=== PATIENT | male | born 1975 | race Caucasian/White ===

== ENCOUNTER → 2017-11-14 | Outpatient (REF) | payer BC ==
[2017-11-14 17:55] LABS: ALBUMIN 3.5 GM/DL (3.2-5.2); ALKALINE PHOSPHATASE 74 U/L (45-117); ALT/SGPT 19 U/L (12-78); ANION GAP 5 MEQ/L (8-16); AST/SGOT 17 U/L (7-37); BILIRUBIN,TOTAL 0.3 MG/DL (0.2-1.0); BLOOD UREA NITROGEN 14 MG/DL (7-18); CALCIUM LEVEL 8.2 MG/DL (8.5-10.1); CARBON DIOXIDE LEVEL 27 MEQ/L (21-32); CHLORIDE LEVEL 108 MEQ/L (98-107); CHOLESTEROL LEVEL 147 MG/DL (<200); CHOLESTEROL RISK RATIO 3.127 (<5); CREATININE FOR GFR 0.77 MG/DL (0.70-1.30); GLOMERULAR FILTRATION RATE > 60.0 (>60); GLUCOSE, FASTING 89 MG/DL (70-100); HDL CHOLESTEROL 47 MG/DL (>40); LDL CHOLESTEROL 86.8 MG/DL (<100); NON-HDL-C 100 MG/DL; POTASSIUM SERUM 4.3 MEQ/L (3.5-5.1); SODIUM LEVEL 140 MEQ/L (136-145); TOTAL PROTEIN 7.4 GM/DL (6.4-8.2); TRIGLYCERIDES LEVEL 66 MG/DL (<150)
[2017-11-14 20:29] LABS: APPEARANCE, URINE CLEAR (CLEAR); BACTERIA, URINE AUTO NEGATIVE (NEGATIVE); BILIRUBIN, URINE AUTO NEGATIVE (NEGATIVE); BLOOD, URINE BLOOD NEGATIVE (NEGATIVE); CALCIUM OXALATE CRYSTALS SMALL; COLOR, URINE YELLOW (YELLOW); GLUCOSE, URINE (UA) AUTO NEGATIVE (NEGATIVE); KETONE, URINE AUTO NEGATIVE (NEGATIVE); LEUKOCYTE ESTERASE, URINE AUTO NEGATIVE (NEGATIVE); MUCUS, URINE SMALL (NEGATIVE); NITRITE, URINE AUTO NEGATIVE (NEGATIVE); PROTEIN, URINE AUTO NEGATIVE (NEGATIVE); RBC, URINE AUTO 0 /HPF (0-3); SPECIFIC GRAVITY URINE AUTO 1.029 (1.002-1.035); SQUAMOUS EPITHELIAL CELL UR AU 0 /HPF (0-6); WBC, URINE AUTO 1 /HPF (0-3)
[2017-11-14 23:34] LABS: CHLAMYDIA DNA AMPLIFICATION NEGATIVE (NEGATIVE); GC DNA AMPLIFICATION NEGATIVE (NEGATIVE)
[2017-11-15 10:10] LABS: HEPATITIS B SURFACE ANTIGEN NEGATIVE (NEGATIVE)
[2017-11-19 00:07] LABS: CHLAMYDIA PHARYNGEAL APTIMA Negative (Negative); GC PHARYNGEAL APTIMA Negative (Negative)
[2017-11-20 00:06] LABS: %CD4 Pos Lymphs 3.7 % (30.8-58.5); ABS Lymphs 0.4 x10E3/uL (0.7-3.1); ABS Monocytes 0.3 x10E3/uL (0.1-0.9); ABS Neutophils 2.4 x10E3/uL (1.4-7.0); Abs CD4 Helper 15 /uL (359-1519); Abs CD8 Suppres 248 /uL (109-897); CD4/CD8 Ratio 0.06 (0.92-3.72); CHLAMYDIA RECTAL APTIMA Negative (Negative); CRYPTOCOCCUS ANTIGEN SER Negative (Negative); Eosinophils 1 % (Not Estab.); GC RECTAL APTIMA Negative (Negative); HCT 35.5 % (37.5-51.0); HEPATITIS B CORE ANTIBODY IGG Negative (Negative); HGB 11.3 g/dL (13.0-17.7); HIV-1 RNA PCR QUANT 2 LC550285 940490 copies/mL (.); HIV-1 RNA PCR QUANT 3 LC550285 5.973 (.); Immature Grans 0 % (Not Estab.); Lymphocytes 13 % (Not Estab.); MCH 28.8 pg (26.6-33.0); MCHC 31.8 g/dL (31.5-35.7); MCV 91 fL (79-97); Monocytes 9 % (Not Estab.); Neutrophils 77 % (Not Estab.); Platelets 131 x10E3/uL (150-379); QUANTIFERON GOLD TB Negative (Negative); RBC 3.92 x10E6/uL (4.14-5.80); RDW 13.9 % (12.3-15.4); TB Test (QFT) Antigen 0.13 IU/mL (.); TB Test (QFT) Antigen Minus Ni <0.01 IU/mL (.); TB Test (QFT) Mitogen 6.82 IU/mL (.); TB Test (QFT) Nil 0.14 IU/mL (.)
== END ==
LOC: M SFHCPLAZ 13:28
DX: B20 Human immunodeficiency virus [HIV] disease (principal); Z13.220 Encounter for screening for lipoid disorders; B45.0 Pulmonary cryptococcosis; A60.02 Herpesviral infection of other male genital organs

== ENCOUNTER → 2018-01-14 | Outpatient (REF) | payer BC | LOC: M SFHCPLAZ 10:29 | DX: A09 Infectious gastroenteritis and colitis, unspecified (principal) | CPT/HCPCS: 87507 ==

== ENCOUNTER → 2018-01-17 | Outpatient (CLI) | payer BC ==
[2018-01-17 11:47] LABS: ALBUMIN 2.9 GM/DL (3.2-5.2); ALBUMIN/GLOBULIN RATIO 0.69 (1.00-1.93); ALKALINE PHOSPHATASE 68 U/L (45-117); ALT/SGPT 15 U/L (12-78); ANION GAP 5 MEQ/L (8-16); AST/SGOT 15 U/L (7-37); BILIRUBIN,TOTAL 0.2 MG/DL (0.2-1.0); BLOOD UREA NITROGEN 16 MG/DL (7-18); CALCIUM LEVEL 8.5 MG/DL (8.5-10.1); CARBON DIOXIDE LEVEL 25 MEQ/L (21-32); CHLORIDE LEVEL 113 MEQ/L (98-107); CREATININE FOR GFR 0.78 MG/DL (0.70-1.30); GLOMERULAR FILTRATION RATE > 60.0 (>60); GLUCOSE, FASTING 88 MG/DL (70-100); POTASSIUM SERUM 3.9 MEQ/L (3.5-5.1); SODIUM LEVEL 143 MEQ/L (136-145); TOTAL PROTEIN 7.1 GM/DL (6.4-8.2)
[2018-01-19 00:07] LABS: % CD8 Pos Lymph 56.8 % (12.0-35.5); %CD4 Pos Lymphs 16.4 % (30.8-58.5); ABS Basophils 0.1 x10E3/uL (0.0-0.2); ABS Eosinophils 0.1 x10E3/uL (0.0-0.4); ABS Lymphs 1.1 x10E3/uL (0.7-3.1); ABS Monocytes 0.5 x10E3/uL (0.1-0.9); ABS Neutophils 2.4 x10E3/uL (1.4-7.0); Abs CD4 Helper 180 /uL (359-1519); Abs CD8 Suppres 625 /uL (109-897); CD4/CD8 Ratio 0.29 (0.92-3.72); Eosinophils 3 % (Not Estab.); HGB 11.1 g/dL (13.0-17.7); Immature Grans 0 % (Not Estab.); Lymphocytes 25 % (Not Estab.); MCH 29.5 pg (26.6-33.0); MCHC 33.6 g/dL (31.5-35.7); MCV 88 fL (79-97); Monocytes 11 % (Not Estab.); Neutrophils 60 % (Not Estab.); Platelets 268 x10E3/uL (150-379); RBC 3.76 x10E6/uL (4.14-5.80); RDW 15.5 % (12.3-15.4); WBC 4.1 x10E3/uL (3.4-10.8)
[2018-01-20 14:11] LABS: CRYPTOCOCCUS ANTIGEN SER Negative (Negative); HSV TYPE II IgG SPECIFIC <0.91 index (0.00-0.90)
[2018-01-21 14:18] LABS: HIV-1 RNA PCR QUANT 2 LC550285 880 copies/mL (.); HIV-1 RNA PCR QUANT 3 LC550285 2.944 (.)
== END ==
LOC: M LAB 10:38
DX: B45.0 Pulmonary cryptococcosis (principal); B20 Human immunodeficiency virus [HIV] disease
CPT/HCPCS: 71250

== ENCOUNTER 2018-01-20 13:36 | Inpatient (IN) | payer BC ==
[~2018-01-20 13:36] MED LIST: ONDANSETRON 4 MG TAB (S0181) PO
[2018-01-20 14:10] LABS: HEMATOCRIT 35.3 % (42.0-52.0); HEMOGLOBIN 11.5 g/dl (13.5-17.5); MEAN CORPUSCULAR HEMOGLOBIN 28.9 pg (27.0-33.0); MEAN CORPUSCULAR HGB CONC 32.6 g/dl (32.0-36.5); MEAN CORPUSCULAR VOLUME 88.7 fl (80.0-96.0); PLATELET COUNT, AUTOMATED 254 10^3/uL (150-450); RED BLOOD COUNT 3.98 10^6/uL (4.30-6.10); RED CELL DISTRIBUTION WIDTH 15.4 % (11.5-14.5); WHITE BLOOD COUNT 4.4 10^3/uL (4.0-10.0)
[2018-01-20 14:15] LABS: ADD MANUAL DIFFER YES; DIFF SLIDE NUMBER 240; POSITIVE MORPH POS FLAG
[2018-01-20] MEDS ORDERED: LEVALBUTEROL 1.25 MG/0.5 ML CONCENTRATE NEB NEB (14:30)
[2018-01-20] MEDS ORDERED: BISACODYL 10 MG SUPP PR (14:30)
[2018-01-20] MEDS: ACETAMINOPHEN TAB 650MG DOSE (2X325MG) PO ×2 (14:43→21:47)
[2018-01-20 14:46] LABS: ANION GAP 5 MEQ/L (8-16); BLOOD UREA NITROGEN 13 MG/DL (7-18); CALCIUM LEVEL 8.5 MG/DL (8.5-10.1); CARBON DIOXIDE LEVEL 23 MEQ/L (21-32); CHLORIDE LEVEL 116 MEQ/L (98-107); CREATININE FOR GFR 0.84 MG/DL (0.70-1.30); GLOMERULAR FILTRATION RATE > 60.0 (>60); GLUCOSE, FASTING 76 MG/DL (70-100); POTASSIUM SERUM 3.9 MEQ/L (3.5-5.1); SODIUM LEVEL 144 MEQ/L (136-145)
[2018-01-20 15:01] LABS: ATYPICAL LYMPH 9 % (0-5); BANDS 1 % (< 11); BASOPHILS 1 % (0-4); EOSINOPHILS 4 % (0-5); LYMPHOCYTES 27 % (16-52); MONOCYTES 3 % (0-8); NEUTROPHILS 55 % (35-75)
[2018-01-20 15:02] LABS: ANISOCYTOSIS 1+
[2018-01-20 15:03] LABS: LDH LACTATE DEHYDROGENASE 197 U/L (87-241)
[2018-01-20 15:03] LABS: PLATELET ESTIMATE NORMAL (NORMAL); POIKILOCYTOSIS 1+
[2018-01-20 15:04] LABS: TEAR DROP CELLS 1+
[2018-01-20] MEDS: LEVALBUTEROL 1.25 MG/0.5 ML CONCENTRATE NEB NEB ×2 (15:24→20:00)
[2018-01-20] MEDS: KETOROLAC 30 MG/ML VIAL (J1885) IV ×2 (16:50→21:46)
[2018-01-20] MEDS ORDERED: SLF 3 ML SYR IV (18:15)
[2018-01-20] MEDS: HEPARIN SOD (PORCINE) 5000 UNITS/ML VIAL SC (21:00)
[2018-01-20] MEDS: DOCUSATE SODIUM 100 MG CAP PO (21:00)
[2018-01-20] MEDS: SLF 3 ML SYR IV (21:46)
[2018-01-21] MEDS: LEVALBUTEROL 1.25 MG/0.5 ML CONCENTRATE NEB NEB ×4 (02:00→20:00)
[2018-01-21] MEDS: KETOROLAC 30 MG/ML VIAL (J1885) IV ×4 (03:57→21:10)
[2018-01-21] MEDS: SLF 3 ML SYR IV ×3 (06:00→21:10)
[2018-01-21] MEDS: BACTRIM 160MG/800MG DS TAB PO (08:54)
[2018-01-21] MEDS: PERCOCET 5MG/325MG TAB PO ×3 (08:54→20:00)
[2018-01-21] MEDS: valACYclovir HCL 500 MG TAB PO (08:54)
[2018-01-21] MEDS: PREZISTA 800 MG PO (08:55)
[2018-01-21] MEDS: GENVOYA PO (08:55)
[2018-01-21] MEDS: HEPARIN SOD (PORCINE) 5000 UNITS/ML VIAL SC ×2 (09:00→20:00)
[2018-01-21] MEDS ORDERED: NON-FORMULARY COMPOUNDED MEDICATION PO (09:00)
[2018-01-21] MEDS: MOM 30ML SUSPENSION UDC PO (09:00)
[2018-01-21 15:40] LABS: PH BODY FLUID 7.451 UNITS (NOT ESTABLISHED); SOURCE, BODY FLUID pH PLEURAL
[2018-01-21 16:06] LABS: BF MONONUCLEAR CELL % 73.4 % (0-0); BF POLYMORPHONUCLEAR CELL % 26.6 % (0-0); RBC BODY FLUID 155 10^3/uL (<2); WBC BODY FLUID 1484 /uL (0-10)
[2018-01-21 16:08] LABS: AMYLASE, BODY FLUID 22 U/L (NOT ESTABLISHED); CHOLESTEROL, BODY FLUID 101 MG/DL (NOT ESTABLISHED); LDH, BODY FLUID 390 U/L (NOT ESTABLISHED); SOURCE, BODY FLUID ALBUMIN PLEURAL; SOURCE, BODY FLUID AMYLASE PLEURAL; SOURCE, BODY FLUID CHOL PLEURAL; SOURCE, BODY FLUID GLUCOSE PLEURAL; SOURCE, BODY FLUID LDH PLEURAL; SOURCE, BODY FLUID TOT PROTEIN PLEURAL; SOURCE, BODY FLUID TRIG PLEURAL; TOTAL PROTEIN, BODY FLUID 4.7 G/DL (NOT ESTABLISHED); TRIGLYCERIDE, BODY FLUID 49 MG/DL (NOT ESTABLISHED)
[2018-01-21 16:12] LABS: SOURCE, BODY FLUID PLEURAL
[2018-01-21 16:13] LABS: APPEARANCE, BODY FLUID CLOUDY (CLEAR); BF DIFF IF INDICATED? YES (NO); PLEURAL FL COLOR RED (COLORLESS)
[2018-01-21] MEDS: MOXIFLOXACIN 400 MG TAB PO (21:45)
[2018-01-22] MEDS: PERCOCET 5MG/325MG TAB PO ×6 (00:13→21:38)
[2018-01-22] MEDS: LEVALBUTEROL 1.25 MG/0.5 ML CONCENTRATE NEB NEB ×4 (02:00→20:00)
[2018-01-22] MEDS: KETOROLAC 30 MG/ML VIAL (J1885) IV ×4 (04:00→21:38)
[2018-01-22] MEDS: SLF 3 ML SYR IV ×3 (05:08→21:01)
[2018-01-22] MEDS: valACYclovir HCL 500 MG TAB PO (08:46)
[2018-01-22] MEDS: BACTRIM 160MG/800MG DS TAB PO (08:46)
[2018-01-22] MEDS: HEPARIN SOD (PORCINE) 5000 UNITS/ML VIAL SC ×2 (08:47→21:01)
[2018-01-22] MEDS: GENVOYA PO (08:47)
[2018-01-22] MEDS: PREZISTA 800 MG PO (08:48)
[2018-01-22] MEDS: MOM 30ML SUSPENSION UDC PO (08:48)
[2018-01-22] MEDS: LOMOTIL 2.5MG/0.025MG TABLET PO ×3 (09:00→21:01)
[2018-01-22] MEDS: ALTEPLASE 2 MG/2 ML VIAL (J2997 PER 1MG) XX (13:35)
[2018-01-22] MEDS: MOXIFLOXACIN 400 MG TAB PO (17:30)
[2018-01-23] MEDS: PERCOCET 5MG/325MG TAB PO ×2 (01:39→05:50)
[2018-01-23] MEDS: LEVALBUTEROL 1.25 MG/0.5 ML CONCENTRATE NEB NEB ×2 (02:00→20:00)
[2018-01-23] MEDS: ACETAMINOPHEN TAB 650MG DOSE (2X325MG) PO ×2 (03:27→09:09)
[2018-01-23] MEDS: KETOROLAC 30 MG/ML VIAL (J1885) IV ×4 (03:27→21:31)
[2018-01-23] MEDS: SLF 3 ML SYR IV ×3 (03:29→21:30)
[2018-01-23] MEDS: MOM 30ML SUSPENSION UDC PO (08:48)
[2018-01-23] MEDS: BACTRIM 160MG/800MG DS TAB PO (08:48)
[2018-01-23] MEDS: valACYclovir HCL 500 MG TAB PO (08:48)
[2018-01-23] MEDS: LOMOTIL 2.5MG/0.025MG TABLET PO ×2 (08:48→16:01)
[2018-01-23] MEDS: HEPARIN SOD (PORCINE) 5000 UNITS/ML VIAL SC ×2 (08:48→21:30)
[2018-01-23] MEDS: PREZISTA 800 MG PO (08:49)
[2018-01-23] MEDS: GENVOYA PO (08:49)
[2018-01-23] MEDS: MOXIFLOXACIN 400 MG TAB PO (18:08)
[2018-01-23] MEDS ORDERED: LOMOTIL 2.5MG/0.025MG TABLET PO (20:00)
[2018-01-24 00:06] LABS: BODY FLUID CULTURE Not Indicated (.); LEGIONELLA ANTIGEN URINE Negative (Negative); ORGANISM ID Not indicated. (.); SPECIMEN SOURCE Urine (.); URINE STREP PNEUMONIAE ANTIGEN Negative (Negative)
[2018-01-24] MEDS: LEVALBUTEROL 1.25 MG/0.5 ML CONCENTRATE NEB NEB ×2 (02:00→08:00)
[2018-01-24] MEDS: KETOROLAC 30 MG/ML VIAL (J1885) IV ×2 (03:07→08:59)
[2018-01-24] MEDS: SLF 3 ML SYR IV (06:00)
[2018-01-24] MEDS: PERCOCET 5MG/325MG TAB PO (07:16)
[2018-01-24] MEDS: MOM 30ML SUSPENSION UDC PO (07:57)
[2018-01-24] MEDS: valACYclovir HCL 500 MG TAB PO (07:57)
[2018-01-24] MEDS: HEPARIN SOD (PORCINE) 5000 UNITS/ML VIAL SC (07:57)
[2018-01-24] MEDS: GENVOYA PO (07:58)
[2018-01-24] MEDS: PREZISTA 800 MG PO (07:59)
[2018-01-24] MEDS: BACTRIM 160MG/800MG DS TAB PO (08:36)
[2018-01-26 00:06] LABS: O+P EXAM Final report (.)
== END 2018-01-24 12:28 | disposition home or self-care (01) | DRG 894 ==
LOC: M MSPAV 13:36 → M PCU 17:28
PROVIDERS: Internal Medicine Infectious Disease
PROC: 0W9930Z Drainage of Right Pleural Cavity with Drainage Device, Percutaneous Approach (ICD-10-PCS; principal; 2018-01-21)
PROC: 3E0L3GC Introduction of Other Therapeutic Substance into Pleural Cavity, Percutaneous Approach (ICD-10-PCS; 2018-01-22)
DX: J90 Pleural effusion, not elsewhere classified (principal); B20 Human immunodeficiency virus [HIV] disease; F32.9 Major depressive disorder, single episode, unspecified; F41.9 Anxiety disorder, unspecified; E78.1 Pure hyperglyceridemia; Z88.0 Allergy status to penicillin; Z79.899 Other long term (current) drug therapy

== ENCOUNTER → 2018-03-12 | Outpatient (CLI) | payer BC | LOC: M RAD 12:03 | DX: B45.0 Pulmonary cryptococcosis (principal) ==

== ENCOUNTER → 2018-06-30 | Outpatient (REF) | payer BC ==
[2018-06-30 23:28] LABS: ALBUMIN 3.8 GM/DL (3.2-5.2); ALKALINE PHOSPHATASE 99 U/L (45-117); ALT/SGPT 30 U/L (12-78); ANION GAP 7 MEQ/L (8-16); AST/SGOT 27 U/L (7-37); BILIRUBIN,TOTAL 0.4 MG/DL (0.2-1.0); BLOOD UREA NITROGEN 12 MG/DL (7-18); CALCIUM LEVEL 8.6 MG/DL (8.5-10.1); CARBON DIOXIDE LEVEL 25 MEQ/L (21-32); CHLORIDE LEVEL 110 MEQ/L (98-107); CREATININE FOR GFR 0.84 MG/DL (0.70-1.30); GLOMERULAR FILTRATION RATE > 60.0 (>60); GLUCOSE, FASTING 76 MG/DL (70-100); POTASSIUM SERUM 4.8 MEQ/L (3.5-5.1); SODIUM LEVEL 142 MEQ/L (136-145); TOTAL PROTEIN 7.5 GM/DL (6.4-8.2)
[2018-06-30 23:37] LABS: ALBUMIN/GLOBULIN RATIO 1.03 (1.00-1.93)
[2018-07-02 14:18] LABS: % CD8 Pos Lymph 58.5 % (12.0-35.5); %CD4 Pos Lymphs 5.8 % (30.8-58.5); ABS Monocytes 0.4 x10E3/uL (0.1-0.9); ABS Neutophils 1.5 x10E3/uL (1.4-7.0); Abs CD4 Helper 58 /uL (359-1519); Abs CD8 Suppres 585 /uL (109-897); Eosinophils 1 % (Not Estab.); HCT 43.3 % (37.5-51.0); HGB 14.2 g/dL (13.0-17.7); HIV-1 RNA PCR QUANT 2 LC550285 434670 copies/mL (.); HIV-1 RNA PCR QUANT 3 LC550285 5.638 (.); Immature Grans 0 % (Not Estab.); Lymphocytes 32 % (Not Estab.); MCH 29.5 pg (26.6-33.0); MCHC 32.8 g/dL (31.5-35.7); MCV 90 fL (79-97); Monocytes 14 % (Not Estab.); Neutrophils 53 % (Not Estab.); Platelets 128 x10E3/uL (150-379); RBC 4.81 x10E6/uL (4.14-5.80); RDW 14.4 % (12.3-15.4)
[2018-07-11 09:18] LABS: HIV GenoSure PRIme(R) SEE SEPARATE REPORT
== END ==
LOC: M SFHCPLAZ 11:49
DX: B20 Human immunodeficiency virus [HIV] disease (principal)
CPT/HCPCS: 80053

== ENCOUNTER → 2018-11-03 | Outpatient (REF) | payer BC ==
[~2018-11-03] MED LIST changes: +AVEL1TAB3 PO; +AZIT600T PO; +BACT800T5 PO; +DIPH2.5T14 PO; +GENV1TAB PO; +LOMO2.5T PO; +MOXI1TAB PO; -ONDANSETRON 4 MG TAB (S0181) PO; +PREZ800T2 PO; +PROB1TAB PO; +VALA1TAB2 PO
[2018-11-05 14:58] LABS: %CD4 Pos Lymphs 16.1 % (30.8-58.5); ABS Eosinophils 0.1 x10E3/uL (0.0-0.4); ABS Monocytes 0.6 x10E3/uL (0.1-0.9); ABS Neutophils 4.8 x10E3/uL (1.4-7.0); Abs CD4 Helper 322 /uL (359-1519); Abs CD8 Suppres 1040 /uL (109-897); CD4/CD8 Ratio 0.31 (0.92-3.72); Eosinophils 1 % (Not Estab.); HCT 42.7 % (37.5-51.0); HGB 13.9 g/dL (13.0-17.7); Immature Grans 0 % (Not Estab.); Lymphocytes 27 % (Not Estab.); MCHC 32.6 g/dL (31.5-35.7); MCV 95 fL (79-97); Monocytes 8 % (Not Estab.); Neutrophils 64 % (Not Estab.); Platelets 279 x10E3/uL (150-379); RBC 4.48 x10E6/uL (4.14-5.80); RDW 13.6 % (12.3-15.4); WBC 7.4 x10E3/uL (3.4-10.8)
[2018-11-07 00:10] LABS: HIV-1 RNA PCR QUANT 2 LC550285 140 copies/mL (.); HIV-1 RNA PCR QUANT 3 LC550285 2.146 (.)
== END ==
LOC: M SFHCPLAZ 14:55
PROVIDERS: ATTEND Internal Medicine Infectious Disease
DX: B20 Human immunodeficiency virus [HIV] disease (principal)

== ENCOUNTER → 2018-12-29 | Outpatient (REF) | payer BC ==
[2018-12-29 10:23] LABS: APPEARANCE, URINE HAZY (CLEAR); BACTERIA, URINE AUTO NEGATIVE (NEGATIVE); BILIRUBIN, URINE AUTO NEGATIVE (NEGATIVE); BLOOD, URINE BLOOD NEGATIVE (NEGATIVE); COLOR, URINE AMBER (YELLOW); GLUCOSE, URINE (UA) AUTO NEGATIVE (NEGATIVE); KETONE, URINE AUTO NEGATIVE (NEGATIVE); LEUKOCYTE ESTERASE, URINE AUTO NEGATIVE (NEGATIVE); MUCUS, URINE SMALL (NEGATIVE); NITRITE, URINE AUTO NEGATIVE (NEGATIVE); PROTEIN, URINE AUTO NEGATIVE (NEGATIVE); RBC, URINE AUTO 1 /HPF (0-3); SPECIFIC GRAVITY URINE AUTO 1.028 (1.002-1.035); SQUAMOUS EPITHELIAL CELL UR AU 0 /HPF (0-6); WBC, URINE AUTO 1 /HPF (0-3)
[2018-12-29 10:46] LABS: ALBUMIN 4.1 GM/DL (3.2-5.2); ALT/SGPT 41 U/L (12-78); BILIRUBIN,TOTAL 0.3 MG/DL (0.2-1.0); BLOOD UREA NITROGEN 31 MG/DL (7-18); CALCIUM LEVEL 8.8 MG/DL (8.5-10.1); CARBON DIOXIDE LEVEL 25 MEQ/L (21-32); CHLORIDE LEVEL 108 MEQ/L (98-107); CHOLESTEROL LEVEL 153 MG/DL (<200); CREATININE FOR GFR 1.11 MG/DL (0.70-1.30); GLOMERULAR FILTRATION RATE > 60.0 (>60); GLUCOSE, FASTING 59 MG/DL (70-100); HDL CHOLESTEROL 51 MG/DL (>40); LDL CHOLESTEROL 88 MG/DL (<100); NON-HDL-C 102 MG/DL; POTASSIUM SERUM 4.6 MEQ/L (3.5-5.1); SODIUM LEVEL 141 MEQ/L (136-145); TOTAL PROTEIN 7.3 GM/DL (6.4-8.2); TRIGLYCERIDES LEVEL 72 MG/DL (<150)
[2018-12-29 11:49] LABS: CHLAMYDIA DNA AMPLIFICATION NEGATIVE (NEGATIVE); GC DNA AMPLIFICATION NEGATIVE (NEGATIVE)
[2018-12-31 00:07] LABS: % CD8 Pos Lymph 51.4 % (12.0-35.5); %CD4 Pos Lymphs 13.3 % (30.8-58.5); ABS Eosinophils 0.1 x10E3/uL (0.0-0.4); ABS Lymphs 1.6 x10E3/uL (0.7-3.1); ABS Monocytes 0.5 x10E3/uL (0.1-0.9); ABS Neutophils 4.4 x10E3/uL (1.4-7.0); Abs CD4 Helper 213 /uL (359-1519); Abs CD8 Suppres 822 /uL (109-897); CD4/CD8 Ratio 0.26 (0.92-3.72); Eosinophils 1 % (Not Estab.); HCT 42.7 % (37.5-51.0); HGB 14.2 g/dL (13.0-17.7); Immature Grans 0 % (Not Estab.); Lymphocytes 24 % (Not Estab.); MCH 30.5 pg (26.6-33.0); MCHC 33.3 g/dL (31.5-35.7); MCV 92 fL (79-97); Monocytes 7 % (Not Estab.); Neutrophils 68 % (Not Estab.); Platelets 205 x10E3/uL (150-379); RBC 4.66 x10E6/uL (4.14-5.80); RDW 13.8 % (12.3-15.4); WBC 6.5 x10E3/uL (3.4-10.8)
[2019-01-01 00:06] LABS: HIV-1 RNA PCR QUANT 2 LC550285 55560 copies/mL (.); HIV-1 RNA PCR QUANT 3 LC550285 4.745 (.)
== END ==
LOC: M SFHCPLAZ 08:00
PROVIDERS: ATTEND Internal Medicine Infectious Disease
DX: Z13.220 Encounter for screening for lipoid disorders (principal); B20 Human immunodeficiency virus [HIV] disease

== ENCOUNTER 2020-10-27 12:13 | Emergency (ER) | payer BC, OTHER ==
[~2020-10-27] VITALS: Ht 170.2 cm; Wt 74.5 kg
[~2020-10-27 12:13] MED LIST changes: -AZIT600T PO; -VALA1TAB2 PO; +VALA1TAB5 PO; +[UNRECOGNIZED DRUG - CODE] PO
[2020-10-27] MEDS ORDERED: IBUP200T45 PO (13:15)
[2020-10-27] MEDS ORDERED: NS 1,000 ML IV ONE (13:45)
[2020-10-27] MEDS ORDERED: ACETAMINOPHEN 500 MG TAB PO ONE (13:45)
[2020-10-27 14:56] LABS: ALBUMIN 3.1 GM/DL (3.2-5.2); ALT/SGPT 24 U/L (12-78); BILIRUBIN,DIRECT < 0.1 MG/DL (0.0-0.2); BILIRUBIN,TOTAL 0.2 MG/DL (0.2-1.0); BLOOD UREA NITROGEN 22 MG/DL (7-18); C REACTIVE PROTEIN QUANTITATIV 1.82 MG/DL (0.00-0.30); CALCIUM LEVEL 8.2 MG/DL (8.5-10.1); CARBON DIOXIDE LEVEL 27 MEQ/L (21-32); CHLORIDE LEVEL 108 MEQ/L (98-107); CREATININE FOR GFR 0.77 MG/DL (0.70-1.30); GLOMERULAR FILTRATION RATE > 60.0 (>60); GLUCOSE, FASTING 99 MG/DL (70-100); LIPASE 113 U/L (73-393); POTASSIUM SERUM 4.1 MEQ/L (3.5-5.1); SODIUM LEVEL 139 MEQ/L (136-145); TOTAL PROTEIN 6.6 GM/DL (6.4-8.2)
[2020-10-27 14:57] LABS: ERYTHROCYTE SEDIMENTATION RATE 40 mm/hr (0-15)
[2020-10-27 14:59] LABS: BASO % 0.5 % (0.0-1.0); EOS # 0.1 10^3/uL (0.0-0.5); EOS % 1.8 % (0.0-3.0); HEMATOCRIT 32.8 % (42.0-52.0); HEMOGLOBIN 10.8 g/dl (13.5-17.5); LYMPH # 0.6 10^3/uL (1.5-5.0); LYMPH % 15.4 % (24.0-44.0); MEAN CORPUSCULAR HEMOGLOBIN 28.1 pg (27.0-33.0); MEAN CORPUSCULAR HGB CONC 32.9 g/dl (32.0-36.5); MEAN CORPUSCULAR VOLUME 85.2 fl (80.0-96.0); MONO # 0.4 10^3/uL (0.0-0.8); MONO % 9.7 % (0.0-5.0); NEUTROPHILS # 2.8 10^3/uL (1.5-8.5); NEUTROPHILS % 71.8 % (36.0-66.0); PLATELET COUNT, AUTOMATED 170 10^3/uL (150-450); RED BLOOD COUNT 3.85 10^6/uL (4.30-6.10); WHITE BLOOD COUNT 3.8 10^3/uL (4.0-10.0)
--- NOTE | 2020-10-27 15:34 | REP ---
INDICATION: pain swelling to r index finger COMPARISON: None. TECHNIQUE: AP, lateral, bilateral oblique views right hand. FINDINGS: The osseous structures and joint spaces are intact and normal. There is no evidence for acute fracture or dislocation. Surrounding soft tissues are unremarkable. No subcutaneous emphysema or radiodense foreign body. IMPRESSION: Normal right hand series. No acute fracture or dislocation. <Electronically signed by Khoa Yates > 10/27/20 7147
--- NOTE | 2020-10-27 16:27 | REP ---
INDICATION: delayed cap refill, purple discoloration to index finger R COMPARISON: 10/12/2019 TECHNIQUE: Real time coates scale and color Doppler ultrasound examination of the right upper extremity using linear high-frequency transducer FINDINGS: Doppler interrogation demonstrates primarily normal triphasic arterial wave patterns and velocities of the subclavian artery, axillary artery, brachial artery, radial artery and proximal ulnar artery. The mid to distal ulnar artery demonstrates monophasic wave patterns with normal velocity. There is no evidence for occlusion or stenosis. Right subclavian artery: 165 cm/sec triphasic Proximal axillary artery: 90 cm/sec triphasic Distal axillary artery: 103 cm/sec triphasic Proximal brachial artery: 111 cm/sec triphasic Distal brachial artery: 117 cm/sec triphasic Proximal ulnar artery: 110 cm/sec triphasic Mid ulnar artery: 125 cm/sec monophasic Distal ulnar artery: 129 cm/sec monophasic Proximal radial artery: 106 cm/sec triphasic Distal radial artery: 107 cm/sec triphasic IMPRESSION: Normal velocities and no evidence for stenosis or occlusion to the above-mentioned right upper extremity arteries. <Electronically signed by Khoa Yates > 10/27/20 7842
[2020-10-27] MEDS ORDERED: NYSTATIN CREAM 15 GM TOP STA (16:57)
[2020-10-27] MEDS ORDERED: CLINDAMYCIN 900 MG in IV 1 EA IV ONE (17:15)
[2020-10-27] MEDS ORDERED: NYSTOI TOP (17:51)
[2020-10-27] MEDS ORDERED: CLIN150C14 PO (17:51)
[2020-10-27 18:05] VITALS: BP 118/56
--- NOTE | 2020-10-28 21:28 | ECGEPIP ---
[facility] - ED Test Date: 2020-10-27 Pat Name: AUSTIN MEYER Department: Room: - Gender: Male [employer] Maker: ALMAS : [id number] Requested By: JESSA Meyer PA-C Order Number: [id number] Reading MD: Ho Epstein Measurements Intervals [place] Rate: 95 P: 62 WY: 152 QRS: 71 QRSD: 86 T: 57 QT: 324 QTc: 408 Interpretive Statements SINUS RHYTHM NO PRIORS FOR COMPARISON Electronically Signed on 10-28-2020 21:27:46 EST by Ho Epstein
== END 2020-10-27 18:33 | disposition home or self-care (01) ==
LOC: M ED 12:13
DX: R22.31 Localized swelling, mass and lump, right upper limb (principal); K61.1 Rectal abscess; F33.9 Major depressive disorder, recurrent, unspecified; F41.9 Anxiety disorder, unspecified; Z21 Asymptomatic human immunodeficiency virus [HIV] infection status; Z79.899 Other long term (current) drug therapy; Z88.0 Allergy status to penicillin; F17.210 Nicotine dependence, cigarettes, uncomplicated

== ENCOUNTER → 2020-11-03 | Outpatient (REF) | payer BC, OTHER ==
[~2020-11-03] MED LIST changes: +CLIN150C15 PO; +IBUP200T45 PO; +NYSTOI TOP
[2020-11-03 14:42] LABS: ALBUMIN 3.5 GM/DL (3.2-5.2); ALT/SGPT 41 U/L (12-78); BILIRUBIN,TOTAL 0.5 MG/DL (0.2-1.0); BLOOD UREA NITROGEN 17 MG/DL (7-18); CARBON DIOXIDE LEVEL 27 MEQ/L (21-32); CHLORIDE LEVEL 109 MEQ/L (98-107); CREATININE FOR GFR 0.92 MG/DL (0.70-1.30); GLOMERULAR FILTRATION RATE > 60.0 (>60); GLUCOSE, FASTING 101 MG/DL (70-100); POTASSIUM SERUM 3.9 MEQ/L (3.5-5.1); SODIUM LEVEL 141 MEQ/L (136-145); TOTAL PROTEIN 7.1 GM/DL (6.4-8.2)
[2020-11-03 14:54] LABS: APPEARANCE, URINE HAZY (CLEAR); BACTERIA, URINE AUTO NEGATIVE (NEGATIVE); BILIRUBIN, URINE AUTO NEGATIVE (NEGATIVE); BLOOD, URINE BLOOD NEGATIVE (NEGATIVE); COLOR, URINE AMBER (YELLOW); GLUCOSE, URINE (UA) AUTO NEGATIVE (NEGATIVE); GRANULAR CAST, URINE AUTO 4 /LPF; KETONE, URINE AUTO NEGATIVE (NEGATIVE); LEUKOCYTE ESTERASE, URINE AUTO NEGATIVE (NEGATIVE); MUCUS, URINE SMALL (NEGATIVE); NITRITE, URINE AUTO NEGATIVE (NEGATIVE); PROTEIN, URINE AUTO 2+ mg/dL (NEGATIVE); RBC, URINE AUTO 0 /HPF (0-3); SPECIFIC GRAVITY URINE AUTO 1.025 (1.002-1.035); SQUAMOUS EPITHELIAL CELL UR AU 0 /HPF (0-6); WBC, URINE AUTO 3 /HPF (0-3)
[2020-11-03 15:26] LABS: HEPATITIS C VIRUS ABY INDEX 0.1 INDEX (<0.8)
[2020-11-03 16:22] LABS: CHLAMYDIA DNA AMPLIFICATION NEGATIVE (NEGATIVE); GC DNA AMPLIFICATION NEGATIVE (NEGATIVE)
[2020-11-05 12:08] LABS: CHLAMYDIA RECTAL APTIMA Negative (Negative); GC RECTAL APTIMA Negative (Negative)
[2020-11-06 23:07] LABS: % CD8 Pos Lymph 62.4 % (12.0-35.5); %CD4 Pos Lymphs 4.3 % (30.8-58.5); ABS Lymphs 0.8 x10E3/uL (0.7-3.1); ABS Monocytes 0.3 x10E3/uL (0.1-0.9); ABS Neutophils 2.1 x10E3/uL (1.4-7.0); Abs CD4 Helper 34 /uL (359-1519); Abs CD8 Suppres 499 /uL (109-897); CD4/CD8 Ratio 0.07 (0.92-3.72); Eosinophils 1 % (Not Estab.); HCT 35.9 % (37.5-51.0); HGB 11.7 g/dL (13.0-17.7); HIV-1 RNA PCR QUANT 2 LC550285 1844010 copies/mL (.); HIV-1 RNA PCR QUANT 3 LC550285 6.266 (.); HSV-1 DNA Negative (Negative); HSV-2 DNA Negative (Negative); Immature Grans 1 % (Not Estab.); Lymphocytes 24 % (Not Estab.); MCHC 32.6 g/dL (31.5-35.7); MCV 86 fL (79-97); Monocytes 8 % (Not Estab.); Neutrophils 65 % (Not Estab.); Platelets 157 x10E3/uL (150-450); RBC 4.18 x10E6/uL (4.14-5.80); RDW 13.6 % (11.6-15.4); WBC 3.2 x10E3/uL (3.4-10.8)
== END ==
LOC: M SFHCPLAZ 10:35
PROVIDERS: ATTEND Internal Medicine Infectious Disease
DX: B20 Human immunodeficiency virus [HIV] disease (principal); K61.1 Rectal abscess

== ENCOUNTER → 2020-11-24 | Outpatient (REF) | payer BC, OTHER ==
[2020-11-24 15:41] LABS: BASO % 0.1 % (0.0-1.0); HEMATOCRIT 31.7 % (42.0-52.0); HEMOGLOBIN 10.4 g/dl (13.5-17.5); LYMPH # 0.3 10^3/uL (1.5-5.0); LYMPH % 3.8 % (24.0-44.0); MEAN CORPUSCULAR HEMOGLOBIN 27.7 pg (27.0-33.0); MEAN CORPUSCULAR HGB CONC 32.8 g/dl (32.0-36.5); MEAN CORPUSCULAR VOLUME 84.3 fl (80.0-96.0); MONO # 0.3 10^3/uL (0.0-0.8); MONO % 3.4 % (0.0-5.0); NEUTROPHILS # 6.7 10^3/uL (1.5-8.5); NEUTROPHILS % 91.5 % (36.0-66.0); PLATELET COUNT, AUTOMATED 187 10^3/uL (150-450); RED BLOOD COUNT 3.76 10^6/uL (4.30-6.10); WHITE BLOOD COUNT 7.3 10^3/uL (4.0-10.0)
[2020-11-24 16:05] LABS: RHEUMATOID FACTOR QUANT < 10.0 IU/ML (<15.0)
[2020-11-24 16:16] LABS: ERYTHROCYTE SEDIMENTATION RATE 70 mm/hr (0-15)
== END ==
LOC: M SFHCPLAZ 13:03
PROVIDERS: ATTEND Internal Medicine Infectious Disease
DX: M25.50 Pain in unspecified joint (principal); B20 Human immunodeficiency virus [HIV] disease

== ENCOUNTER → 2020-12-06 | Outpatient (REF) | payer BC, OTHER | LOC: M LAB REF 17:03 | PROVIDERS: ATTEND Physician Assistant | DX: R21 Rash and other nonspecific skin eruption (principal) ==

== ENCOUNTER → 2020-12-15 | Outpatient (REF) | payer BC ==
[2020-12-15 18:52] LABS: HEMATOCRIT 32.2 % (42.0-52.0); HEMOGLOBIN 9.9 g/dl (13.5-17.5); MEAN CORPUSCULAR HEMOGLOBIN 27.2 pg (27.0-33.0); MEAN CORPUSCULAR HGB CONC 30.7 g/dl (32.0-36.5); MEAN CORPUSCULAR VOLUME 88.5 fl (80.0-96.0); PLATELET COUNT, AUTOMATED 204 10^3/uL (150-450); RED BLOOD COUNT 3.64 10^6/uL (4.30-6.10); WHITE BLOOD COUNT 8.2 10^3/uL (4.0-10.0)
[2020-12-15 19:11] LABS: ALBUMIN 2.7 GM/DL (3.2-5.2); ALT/SGPT 17 U/L (12-78); BILIRUBIN,TOTAL 0.3 MG/DL (0.2-1.0); BLOOD UREA NITROGEN 20 MG/DL (7-18); CALCIUM LEVEL 8.6 MG/DL (8.5-10.1); CARBON DIOXIDE LEVEL 27 MEQ/L (21-32); CHLORIDE LEVEL 99 MEQ/L (98-107); GLOMERULAR FILTRATION RATE > 60.0 (>60); GLUCOSE, FASTING 103 MG/DL (70-100); POTASSIUM SERUM 4.3 MEQ/L (3.5-5.1); SODIUM LEVEL 131 MEQ/L (136-145); TOTAL PROTEIN 6.4 GM/DL (6.4-8.2)
[2020-12-15 20:11] LABS: ANISOCYTOSIS 1+; ATYPICAL LYMPH 1 % (0-5); LYMPHOCYTES 11 % (16-44); METAMYELOCYTES 1 % (0-0); MONOCYTES 6 % (0-5); MYELOCYTES 1 % (0-0); NEUTROPHILS 63 % (28-66); OVALOCYTES 1+; PLATELET ESTIMATE NORMAL (NORMAL); POIKILOCYTOSIS 1+; POLYCHROMASIA 1+
[2020-12-19 16:07] LABS: RPR Reactive (Non Reactive)
== END ==
LOC: M SFHCPLAZ 14:11
PROVIDERS: ATTEND Internal Medicine Infectious Disease
DX: A53.9 Syphilis, unspecified (principal); R50.9 Fever, unspecified

== ENCOUNTER → 2020-12-23 | Outpatient (CLI) | payer BC ==
[~2020-12-23] MED LIST changes: +PROHANCE 279.3MG/ML 15ML VIAL As Ordered ONE
--- NOTE | 2020-12-23 15:04 | REP ---
INDICATION: LEFT ANKLE SYNOVITIS, MRI 1ST THEN XR COMPARISON: 03/12/2018 TECHNIQUE: PA and lateral. FINDINGS: Cardiac silhouette is normal. There is prominent opacity to the bilateral susan and adenopathy cannot be excluded. The lung peña demonstrate chronic appearing changes without discrete focal consolidation or effusion. Chronic blunting to the costophrenic angles (right greater than left) again noted. IMPRESSION: Bilateral hilar adenopathy (right greater than left) cannot be excluded and warrants contrast-enhanced chest CT follow-up. <Electronically signed by Khoa Yates > 12/23/20 1500
--- NOTE | 2020-12-26 09:19 | REP ---
INDICATION: LEFT ANKLE SYNOVITIS. COMPARISON: None. TECHNIQUE: Multiple sequences are obtained in the axial, coronal and sagittal planes prior to and following the intravenous administration of 14 mL ProHance.. FINDINGS: The Achilles, anterior tibial, posterior tibial, flexor hallucis longus, flexor digitorum longus and peroneal tendons are all intact without significant tenosynovitis. The anterior and posterior talofibular, calcaneofibular and deltoid ligaments appear intact. Plantar tendon appears intact. There is no plantar fasciitis. Sinus tarsi appears unremarkable. No ganglion cyst is seen. There is normal amount of joint fluid. The cartilaginous surfaces are smooth. No osteochondral defect is seen at the tibiotalar joint. There is no bone marrow edema or occult fracture. There is a moderate degree of superficial soft tissue edema diffusely. There is no abnormal enhancement. No enhancing mass is seen. There is no abnormal bone marrow enhancement. IMPRESSION: No evidence of internal derangement. Moderate diffuse superficial soft tissue edema. No abnormal enhancement. <Electronically signed by Oliver Flores > 12/26/20 0750
== END ==
LOC: M RAD 13:37
PROVIDERS: ATTEND Internal Medicine Infectious Disease
DX: B45.0 Pulmonary cryptococcosis (principal); M65.9 Synovitis and tenosynovitis, unspecified
CPT/HCPCS: 71046; 73723; A9576

== ENCOUNTER → 2020-12-29 | Outpatient (REF) | payer BC ==
[~2020-12-29] MED LIST changes: -PROHANCE 279.3MG/ML 15ML VIAL As Ordered ONE
[2020-12-29 15:12] LABS: ALT/SGPT 21 U/L (12-78); BILIRUBIN,TOTAL 0.1 MG/DL (0.2-1.0); BLOOD UREA NITROGEN 10 MG/DL (7-18); CALCIUM LEVEL 8.9 MG/DL (8.5-10.1); CARBON DIOXIDE LEVEL 29 MEQ/L (21-32); CHLORIDE LEVEL 105 MEQ/L (98-107); CREATININE FOR GFR 0.68 MG/DL (0.70-1.30); GLOMERULAR FILTRATION RATE > 60.0 (>60); GLUCOSE, FASTING 85 MG/DL (70-100); SODIUM LEVEL 137 MEQ/L (136-145); TOTAL PROTEIN 7.6 GM/DL (6.4-8.2)
== END ==
LOC: M SFHCPLAZ 13:07
PROVIDERS: ATTEND Internal Medicine Infectious Disease
DX: A51.49 Other secondary syphilitic conditions (principal); B20 Human immunodeficiency virus [HIV] disease; B45.0 Pulmonary cryptococcosis

== ENCOUNTER → 2021-01-16 | Outpatient (CLI) | payer BC ==
[2021-01-16 19:06] LABS: C REACTIVE PROTEIN QUANTITATIV 8.34 MG/DL (0.00-0.30); MAGNESIUM LEVEL 1.8 MG/DL (1.8-2.4); PHOSPHORUS LEVEL 4.7 MG/DL (2.5-4.9); THYROID STIMULATING HORMONE 1.69 uIU/ML (0.358-3.740)
[2021-01-17 14:31] LABS: TOTAL 25(OH) VITAMIN D 18.3 NG/ML (30.0-100.0)
== END ==
LOC: M LAB 17:37
PROVIDERS: ATTEND Internal Medicine
DX: M79.10 Myalgia, unspecified site (principal)

== ENCOUNTER → 2021-01-24 | Outpatient (CLI) | payer BC ==
[~2021-01-24] MED LIST changes: +CELE1CAP9 PO; +ISOVUE-370 76% 100ML VIAL As Ordered ONE; +TRAM50TA2 PO
--- NOTE | 2021-01-25 08:27 | REP ---
INDICATION: PULMONARY CRYPTOCOCCOSIS COMPARISON: 01/22/2018 TECHNIQUE: Axial contrast enhanced images from the thoracic inlet to the upper abdomen with coronal and sagittal reformations using 75 ml Isovue 370 intravenous contrast material. This CT examination was performed using the following dose reduction techniques: Automated exposure control, adjustment of mA and/or kv according to the patient's size, and use of iterative reconstruction technique. FINDINGS: Moderate-sized area of nodular airspace disease noted extending from the right perihilar region into the right upper lobe along with significant mediastinal and primarily right hilar adenopathy which includes small punctate areas of calcification. Few scattered bilateral pulmonary nodules are also identified measuring up to approximately 9 mm. Scattered areas of linear scarring primarily involving the right hemithorax is chronic. No effusion. No pneumothorax. Tracheobronchial tree is patent. 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 Pulmonary vessels are normal. No cardiomegaly or pericardial effusion noted. Musculoskeletal structures are intact and without acute osseous abnormality. IMPRESSION: A moderate-sized area of nodular airspace disease in the right upper lobe along with scattered noncalcified nodules up to 9 mm and significant mediastinal/hilar adenopathy is consistent with active disease and the given diagnosis of cryptococcis. <Electronically signed by Khoa Yates > 01/25/21 0897
== END ==
LOC: M RAD 17:26
PROVIDERS: ATTEND Internal Medicine Infectious Disease
DX: B45.0 Pulmonary cryptococcosis (principal)
CPT/HCPCS: 71260; Q9967

== ENCOUNTER → 2021-01-26 | Outpatient (CLI) | payer BC ==
[~2021-01-26] MED LIST changes: -ISOVUE-370 76% 100ML VIAL As Ordered ONE; +LIDOCAINE 1% MDV 20ML VIAL As Ordered ONE
[2021-01-26 15:37] LABS: APPEARANCE, CSF CLEAR (CLEAR); COLOR, CSF COLORLESS (COLORLESS); CSF TUBE# CELL CNT TUBE 1
[2021-01-26 16:37] LABS: CSF TUBE# GLU TUBE 2; GLUCOSE CSF 45 MG/DL (40-75)
[2021-01-26 16:38] LABS: CSF TUBE# TP TUBE 2; TOTAL PROTEIN,CSF 0.1 MG/DL (15-45)
[2021-01-26 17:00] VITALS: BP 105/59
--- NOTE | 2021-01-26 17:05 | REP ---
PROCEDURE NAME: FLUORO GUID FOR NEEDLE PLACEMT SEDATION: None CLINICAL INFORMATION: NEUROPATHY, SECONDARY SYPHILIS LUMBAR PUNCTURE. PHYSICIAN: Jovita De La Garza PROCEDURE DESCRIPTION: The procedure was performed by ARETHA Arevalo, under the direct supervision of Dr. Dr. Flores. The risks and benefits of the procedure were explained to the patient and an informed consent was obtained both verbally and written. Directly prior to the start of the procedure a formal time-out was completed in the procedure room. The L3-4 interspace was localized using fluoroscopic guidance. The skin was prepped and draped in a sterile fashion. Five 1 % lidocaine 10 milligrams/milliliter was used as a local anesthetic. Using fluoroscopic guidance a 22 gauge spinal needle was inserted and advanced without significant difficulty in to the cerebral spinal space at the L3-4 interspinous level. Clear freely flowing cerebral spinal fluid was retrieved. The initial opening pressure was measured by manometry at 16 cm of water. A total of 7.5 mL of cerebral spinal fluid was withdrawn gently and sent to the laboratory for further analysis. The needle was then withdrawn and a sterile dressing was applied. 0.1 minutes of fluoroscopy time was utilized for this procedure. Some fluoroscopic images are performed with last image hold technology. These images require no additional radiation. The patient tolerated the procedure well and there were no immediate complications. After the appropriate amount of monitored chondral assist the patient was discharged back to the unit. ESTIMATED BLOOD LOSS: Less than 1 mL COMPLICATIONS: None CONCLUSION: Fluoroscopic guided lumbar puncture and CSF retrieval. <Electronically signed by Jovita De La Garza > 01/26/21 1541 <Electronically signed by Oliver Flores > 01/26/21 1709
== END ==
LOC: M IRPRO 13:56
PROVIDERS: ATTEND Internal Medicine Infectious Disease
DX: G62.9 Polyneuropathy, unspecified (principal); A51.49 Other secondary syphilitic conditions

== ENCOUNTER → 2021-02-20 | Outpatient (CLI) | payer BC ==
[~2021-02-20] MED LIST changes: -LIDOCAINE 1% MDV 20ML VIAL As Ordered ONE
--- NOTE | 2021-02-20 18:55 | REP ---
INDICATION: DIAGNOSING SOLITARY PULMONARY NODULE. Other nonspecific abnormal finding of lung field. 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 COMPARISON: Comparison chest CT study 24 January 2021.. TECHNIQUE: 1 hour 32 minutes following the intravenous injection of a 13.38 mCi dose of F-18 FDG, three-dimensional PET scintigraphy is acquired from the skull base to the proximal thighs. Triplanar noncontrast CT scanning is acquired through the same anatomic range for attenuation correction, and image registration with scan parameters optimized to minimize radiation exposure to the patient. PET scintigraphy and CT datasets were fused and displayed on a workstation with multiplanar and projection display capability. FINDINGS: There is multifocal hypermetabolic lymphadenopathy including left supraclavicular, bilateral axillary, bilateral inguinal and iliac, right hilar, subcarinal and superior paratracheal and paraesophageal lymph node chains. Maximum standard uptake value in these darrick foci range from 3.902 8.72. There is hypermetabolic uptake in the enlarged right hilus and in the infiltrate in the right middle lobe and right mid lung zone distribution. Maximum standard uptake value in these parenchymal foci are 10.22 in the right middle lobe and 5.49 in the more infiltrative opacity on the right. No abnormal bony uptake. IMPRESSION: Multifocal hypermetabolic adenopathy in the neck, bilateral axillary, chest, pelvis, and inguinal regions. Right lung pulmonary parenchymal lesions are hypermetabolic as well. Scintigraphic findings are nonspecific. They are certainly consistent with chronic granulomatous disease. Malignancy is difficult to exclude based on PET scintigraphy findings. <Electronically signed by Richard Us > 02/20/21 [id number]
== END ==
LOC: M PLARAD 14:23
PROVIDERS: ATTEND Internal Medicine Pulmonary Disease
DX: R91.1 Solitary pulmonary nodule (principal)

== ENCOUNTER → 2021-02-28 | Outpatient (REF) | payer BC ==
[2021-02-28 14:22] LABS: ALBUMIN 3.6 GM/DL (3.2-5.2); ALT/SGPT 20 U/L (12-78); BILIRUBIN,TOTAL 0.3 MG/DL (0.2-1.0); BLOOD UREA NITROGEN 17 MG/DL (7-18); CALCIUM LEVEL 9.8 MG/DL (8.5-10.1); CARBON DIOXIDE LEVEL 25 MEQ/L (21-32); CHLORIDE LEVEL 105 MEQ/L (98-107); CREATININE FOR GFR 0.87 MG/DL (0.70-1.30); GLOMERULAR FILTRATION RATE > 60.0 (>60); GLUCOSE, FASTING 89 MG/DL (70-100); IRON (FE) 55 UG/DL (65-175); PERCENT SATURATION 15.9 % (19.7-50.0); POTASSIUM SERUM 4.8 MEQ/L (3.5-5.1); SODIUM LEVEL 137 MEQ/L (136-145); TOTAL IRON BINDING CAPACITY 347 UG/DL (250-450); TOTAL PROTEIN 7.7 GM/DL (6.4-8.2)
[2021-03-02 16:09] LABS: % CD8 Pos Lymph 60.2 % (12.0-35.5); %CD4 Pos Lymphs 9.5 % (30.8-58.5); ABS Eosinophils 0.1 x10E3/uL (0.0-0.4); ABS Monocytes 0.5 x10E3/uL (0.1-0.9); Abs CD4 Helper 95 /uL (359-1519); Abs CD8 Suppres 602 /uL (109-897); CD4/CD8 Ratio 0.16 (0.92-3.72); Eosinophils 1 % (Not Estab.); HCT 37.1 % (37.5-51.0); HGB 12.4 g/dL (13.0-17.7); HIV-1 RNA PCR QUANT 2 LC550285 420 copies/mL (.); HIV-1 RNA PCR QUANT 3 LC550285 2.623 (.); Immature Grans 0 % (Not Estab.); Lymphocytes 22 % (Not Estab.); MCH 27.9 pg (26.6-33.0); MCHC 33.4 g/dL (31.5-35.7); MCV 84 fL (79-97); Monocytes 11 % (Not Estab.); Neutrophils 66 % (Not Estab.); Platelets 303 x10E3/uL (150-450); RBC 4.44 x10E6/uL (4.14-5.80); RDW 14.6 % (11.6-15.4); RPR Reactive (Non Reactive); WBC 4.6 x10E3/uL (3.4-10.8)
== END ==
LOC: M SFHCPLAZ 10:56
PROVIDERS: ATTEND Internal Medicine Infectious Disease
DX: B20 Human immunodeficiency virus [HIV] disease (principal); D50.8 Other iron deficiency anemias; M02.30 Reiter's disease, unspecified site

== ENCOUNTER → 2021-04-19 | Outpatient (CLI) | payer BC ==
--- NOTE | 2021-04-19 11:51 | REP ---
INDICATION: ABNORMAL FINDING OF LUNG FIELD COMPARISON: Multiple the latest 01/24/2021. TECHNIQUE: Standard helical technique without intravenous contrast. I-LOGIC protocol FINDINGS: Once again, there is marked mediastinal and hilar adenopathy the appearance of which has not changed significantly compared to the prior exam although the prior exam is a contrast-enhanced exam. No pleural or pericardial effusions have developed. There is no change in the imaged upper abdomen or imaged osseous structures. Evaluation of the lung peña shows a slight increase in the scattered nodular and asymmetric density seen in the right upper lobe. There is no change in the position of the fiducial marker seen in the right lower lobe. There is no significant change in appearance of the multiple right lower lobe nodules. One of the nodules may have gotten slightly smaller. This cannot be stated with absolute certainty due to slice selection and the small size of the nodule. The dominant left lung nodule seen on the prior exam in the left lower lobe has gotten smaller. It previously measured 1 cm and today measures 6 mm. The smaller left lower lobe nodule was obscured by respiratory motion artifact on the prior exam. It too may have gotten smaller. The subtle ground-glass opacity seen previously in the lateral basal segment of the left lower lobe has resolved. There are 2 new nodules in the superior lingula, however, 1 is calcifying and the other measures 4 mm. IMPRESSION: 1. Multiple lung nodules as described above. 2. Essentially unchanged adenopathy. 3. Other findings as described above. <Electronically signed by Adolph Packer > 04/19/21 5817
== END ==
LOC: M RAD 11:20
PROVIDERS: ATTEND Internal Medicine Pulmonary Disease
DX: R91.8 Other nonspecific abnormal finding of lung field (principal)

== ENCOUNTER → 2021-04-20 | Outpatient (CLI) | payer BC ==
[2021-04-20 15:26] LABS: ALBUMIN 4.5 GM/DL (3.2-5.2); ALT/SGPT 21 U/L (12-78); BILIRUBIN,TOTAL 0.3 MG/DL (0.2-1.0); BLOOD UREA NITROGEN 27 MG/DL (7-18); CALCIUM LEVEL 9.6 MG/DL (8.5-10.1); CARBON DIOXIDE LEVEL 29 MEQ/L (21-32); CHLORIDE LEVEL 106 MEQ/L (98-107); CREATININE FOR GFR 0.94 MG/DL (0.70-1.30); GLOMERULAR FILTRATION RATE > 60.0 (>60); GLUCOSE, FASTING 75 MG/DL (70-100); IRON (FE) 57 UG/DL (65-175); PERCENT SATURATION 11.8 % (19.7-50.0); POTASSIUM SERUM 4.9 MEQ/L (3.5-5.1); SODIUM LEVEL 137 MEQ/L (136-145); TOTAL IRON BINDING CAPACITY 484 UG/DL (250-450); TOTAL PROTEIN 8.1 GM/DL (6.4-8.2)
[2021-04-20 15:30] LABS: TOTAL 25(OH) VITAMIN D 47.8 NG/ML (30.0-100.0)
[2021-04-22 16:07] LABS: % CD8 Pos Lymph 55.3 % (12.0-35.5); %CD4 Pos Lymphs 11.8 % (30.8-58.5); ABS Eosinophils 0.1 x10E3/uL (0.0-0.4); ABS Lymphs 1.3 x10E3/uL (0.7-3.1); ABS Monocytes 0.7 x10E3/uL (0.1-0.9); ABS Neutophils 4.2 x10E3/uL (1.4-7.0); Abs CD4 Helper 153 /uL (359-1519); Abs CD8 Suppres 719 /uL (109-897); CD4/CD8 Ratio 0.21 (0.92-3.72); Eosinophils 1 % (Not Estab.); HCT 44.2 % (37.5-51.0); HGB 14.4 g/dL (13.0-17.7); HIV-1 RNA PCR QUANT 2 LC550285 200 copies/mL (.); HIV-1 RNA PCR QUANT 3 LC550285 2.301 (.); Immature Grans 1 % (Not Estab.); Lymphocytes 20 % (Not Estab.); MCH 28.4 pg (26.6-33.0); MCHC 32.6 g/dL (31.5-35.7); MCV 87 fL (79-97); Monocytes 11 % (Not Estab.); Neutrophils 66 % (Not Estab.); Platelets 303 x10E3/uL (150-450); RBC 5.07 x10E6/uL (4.14-5.80); RDW 15.5 % (11.6-15.4); RPR Reactive (Non Reactive); WBC 6.4 x10E3/uL (3.4-10.8)
== END ==
LOC: M PLALAB 11:41
PROVIDERS: ATTEND Internal Medicine Infectious Disease
DX: B20 Human immunodeficiency virus [HIV] disease (principal); D50.8 Other iron deficiency anemias; E55.9 Vitamin D deficiency, unspecified

== ENCOUNTER → 2021-07-13 | Outpatient (REF) | payer BC ==
[~2021-07-13] MED LIST changes: -CLIN150C15 PO; +CLIN150C17 PO
[2021-07-13 16:49] LABS: C REACTIVE PROTEIN QUANTITATIV 0.89 MG/DL (0.00-0.30); MAGNESIUM LEVEL 2.3 MG/DL (1.8-2.4)
[2021-07-13 17:00] LABS: TOTAL 25(OH) VITAMIN D 31.7 NG/ML (30.0-100.0)
== END ==
LOC: M SFHCRHEU 12:05
PROVIDERS: ATTEND Internal Medicine
DX: M79.10 Myalgia, unspecified site (principal); M02.30 Reiter's disease, unspecified site

== ENCOUNTER 2023-06-20 19:02 | Emergency (ER) | payer BC ==
[~2023-06-20] VITALS: Ht 170.2 cm; Wt 63.9 kg
[~2023-06-20 19:02] MED LIST changes: -IBUP200T45 PO; +IBUP200T46 PO; +NYST100085 TOP; -NYSTOI TOP
[2023-06-20 20:04] LABS: BASO % 0.2 % (0.0-1.0); EOS % 0.2 % (0.0-3.0); HEMATOCRIT 32.2 % (42.0-52.0); HEMOGLOBIN 10.6 g/dl (13.5-17.5); LYMPH # 0.4 10^3/uL (1.5-5.0); LYMPH % 8.4 % (24.0-44.0); MEAN CORPUSCULAR HEMOGLOBIN 27.1 pg (27.0-33.0); MEAN CORPUSCULAR HGB CONC 32.9 g/dl (32.0-36.5); MEAN CORPUSCULAR VOLUME 82.4 fl (80.0-96.0); MONO # 0.4 10^3/uL (0.0-0.8); NEUTROPHILS # 4.1 10^3/uL (1.5-8.5); NEUTROPHILS % 81.8 % (36.0-66.0); PLATELET COUNT, AUTOMATED 168 10^3/uL (150-450); RED BLOOD COUNT 3.91 10^6/uL (4.30-6.10)
[2023-06-20 20:14] LABS: ERYTHROCYTE SEDIMENTATION RATE 101 mm/hr (0-15)
[2023-06-20 20:30] LABS: BLOOD UREA NITROGEN 14 MG/DL (9-23); CALCIUM LEVEL 8.4 MG/DL (8.5-10.1); CARBON DIOXIDE LEVEL 25 MMOL/L (20-31); CHLORIDE LEVEL 99 MMOL/L (98-107); CREATININE FOR GFR 0.59 MG/DL (0.70-1.30); GLOMERULAR FILTRATION RATE > 60.0 (>60); GLUCOSE, FASTING 102 MG/DL (60-100); POTASSIUM SERUM 3.7 MMOL/L (3.5-5.1); SODIUM LEVEL 132 MMOL/L (136-145)
[2023-06-20 22:33] LABS: INR 1.17; PROTHROMBIN TIME 14.6 SECONDS (12.5-14.5)
[2023-06-20 22:34] LABS: PARTIAL THROMBOPLASTIN TIME 32.8 SECONDS (24.8-34.2)
[2023-06-20] MEDS ORDERED: APIXABAN 5 MG TAB (ELIQUIS) PO ONE (23:55)
[2023-06-21] MEDS ORDERED: ELIQ5TAB PO (00:11)
[2023-06-21 00:50] VITALS: BP 120/78; TEMP 98; O2SAT 100
[2023-06-21 01:20] LABS: INR 1.12; PROTHROMBIN TIME 14.1 SECONDS (12.5-14.5)
[2023-06-21 01:21] LABS: PARTIAL THROMBOPLASTIN TIME 32.1 SECONDS (24.8-34.2)
== END 2023-06-21 01:24 | disposition home or self-care (01) ==
LOC: M ED 19:02
DX: I82.402 Acute embolism and thrombosis of unspecified deep veins of left lower extremity (principal); A53.9 Syphilis, unspecified; B20 Human immunodeficiency virus [HIV] disease; F41.9 Anxiety disorder, unspecified; F32.A Depression, unspecified; G57.92 Unspecified mononeuropathy of left lower limb; D64.9 Anemia, unspecified; B45.0 Pulmonary cryptococcosis; F17.210 Nicotine dependence, cigarettes, uncomplicated; Z79.899 Other long term (current) drug therapy

== ENCOUNTER 2023-07-02 10:36 | Inpatient (IN) | payer BC ==
[~2023-07-02] VITALS: Ht 170.2 cm; Wt 63.6 kg
[~2023-07-02 10:36] MED LIST changes: -ACETAMINOPHEN TAB 650MG DOSE (2X325MG) PO ONE; -BACTDSTA PO; -CEPH500C PO; -HYDR-3715 PO; -LOVE0.4I2 SC; -Patient Own Medication PO; -TRIA1CR80 EXT
[2023-07-02 15:44] VITALS: BP 116/69; TEMP 101.3; O2SAT 100
[2023-07-02 16:13] LABS: HEMATOCRIT 28.2 % (42.0-52.0); HEMOGLOBIN 8.9 g/dl (13.5-17.5); MEAN CORPUSCULAR HEMOGLOBIN 26.6 pg (27.0-33.0); MEAN CORPUSCULAR HGB CONC 31.6 g/dl (32.0-36.5); MEAN CORPUSCULAR VOLUME 84.2 fl (80.0-96.0); PLATELET COUNT, AUTOMATED 246 10^3/uL (150-450); RED BLOOD COUNT 3.35 10^6/uL (4.30-6.10); WHITE BLOOD COUNT 3.9 10^3/uL (4.0-10.0)
[2023-07-02] MEDS ORDERED: ACETAMINOPHEN TAB 650MG DOSE (2X325MG) PO PRN (16:15)
[2023-07-02 16:21] LABS: INR 1.4; PROTHROMBIN TIME 16.8 SECONDS (12.5-14.5)
[2023-07-02 16:22] LABS: PARTIAL THROMBOPLASTIN TIME 36.2 SECONDS (24.8-34.2)
[2023-07-02 16:23] LABS: ALBUMIN 2.6 G/DL (3.2-5.2); ALKALINE PHOSPHATASE 62 U/L (46-116); ALT/SGPT 16 U/L (7.0-40); AST/SGOT 19 U/L (<34); BILIRUBIN,TOTAL 0.3 MG/DL (0.3-1.2); BLOOD UREA NITROGEN 9 MG/DL (9-23); CALCIUM LEVEL 7.6 MG/DL (8.5-10.1); CARBON DIOXIDE LEVEL 29 MMOL/L (20-31); CHLORIDE LEVEL 100 MMOL/L (98-107); CREATININE FOR GFR 0.69 MG/DL (0.70-1.30); GLOMERULAR FILTRATION RATE > 60.0 (>60); GLUCOSE, FASTING 94 MG/DL (60-100); POTASSIUM SERUM 3.8 MMOL/L (3.5-5.1); SODIUM LEVEL 135 MMOL/L (136-145); TOTAL PROTEIN 6.8 G/DL (5.7-8.2)
[2023-07-02 16:33] LABS: PROCALCITONIN <0.04 ng/ml
[2023-07-02] MEDS ORDERED: NORCO, ANEXSIA 5/325MG TABLET (HYDROcodone/ACETAMINOPHEN) PO PRN (17:00)
[2023-07-02 17:10] LABS: LYMPHOCYTES 7 % (16-44); MONOCYTES 5 % (0-5); NEUTROPHILS 88 % (28-66); PLATELET ESTIMATE NORMAL (NORMAL)
[2023-07-02 17:11] LABS: OVALOCYTES 1+
[2023-07-02 17:28] VITALS: TEMP 100.2
[2023-07-02] MEDS ORDERED: ELIQ5TAB PO (17:51)
[2023-07-02] MEDS ORDERED: HOME MED LIST COMPLETE! XX SCH (17:55)
[2023-07-02] MEDS ORDERED: VANCOMYCIN HCL 750 MG, VIAL MATE ADAPTER 1 EACH in D5W 250 ML IV ONE (20:00)
[2023-07-02] MEDS: APIXABAN 5 MG TAB (ELIQUIS) PO SCH (20:37)
[2023-07-02 20:49] VITALS: BP 110/66; TEMP 99.9; O2SAT 98
[2023-07-02] MEDS ORDERED: VANCOMYCIN HCL 500 MG in D5W MINI-BAG PLUS 100 ML IV ONE (21:00)
[2023-07-02] MEDS ORDERED: PERCOCET 5MG/325MG TAB PO PRN (22:10)
[2023-07-02] MEDS ORDERED: MORPHINE 2 MG/ML 1ML VIAL IV ONE (22:30)
[2023-07-02] MEDS: PERCOCET 5MG/325MG TAB PO PRN (23:14)
[2023-07-03] MEDS: VANCOMYCIN HCL 1,000 MG, VIAL MATE ADAPTER 1 EACH in D5W 250 ML IV SCH ×3 (01:28→17:34)
[2023-07-03 05:31] VITALS: BP 102/68; TEMP 98.1; O2SAT 98
[2023-07-03 07:08] LABS: HEMATOCRIT 26.5 % (42.0-52.0); HEMOGLOBIN 8.6 g/dl (13.5-17.5); MEAN CORPUSCULAR HEMOGLOBIN 27.3 pg (27.0-33.0); MEAN CORPUSCULAR HGB CONC 32.5 g/dl (32.0-36.5); MEAN CORPUSCULAR VOLUME 84.1 fl (80.0-96.0); PLATELET COUNT, AUTOMATED 221 10^3/uL (150-450); RED BLOOD COUNT 3.15 10^6/uL (4.30-6.10); WHITE BLOOD COUNT 2.2 10^3/uL (4.0-10.0)
[2023-07-03 07:33] LABS: BLOOD UREA NITROGEN 9 MG/DL (9-23); CALCIUM LEVEL 7.7 MG/DL (8.5-10.1); CARBON DIOXIDE LEVEL 28 MMOL/L (20-31); CHLORIDE LEVEL 102 MMOL/L (98-107); CREATININE FOR GFR 0.61 MG/DL (0.70-1.30); GLOMERULAR FILTRATION RATE > 60.0 (>60); GLUCOSE, FASTING 90 MG/DL (60-100); MAGNESIUM LEVEL 1.8 MG/DL (1.8-2.4); POTASSIUM SERUM 4.1 MMOL/L (3.5-5.1); SODIUM LEVEL 136 MMOL/L (136-145)
[2023-07-03 07:46] LABS: PROCALCITONIN <0.04 ng/ml
[2023-07-03] MEDS ORDERED: NON-FORMULARY COMPOUNDED MEDICATION PO SCH (09:00)
[2023-07-03] MEDS: APIXABAN 5 MG TAB (ELIQUIS) PO SCH (09:03)
[2023-07-03] MEDS: BACTRIM 160MG/800MG DS TAB PO SCH (09:04)
[2023-07-03] MEDS ORDERED: cefTRIAXone SOD 1 GM in D5W MINI-BAG PLUS 50 ML IV SCH (13:00)
[2023-07-03 14:00] VITALS: BP 98/64; TEMP 97.7; O2SAT 98
[2023-07-03 19:47] VITALS: BP 98/62; TEMP 97.7; O2SAT 98
[2023-07-03] MEDS: PERCOCET 5MG/325MG TAB PO PRN (20:57)
[2023-07-03] MEDS: ENOXAPARIN 60MG/0.6ML SYRINGE (J1650 PER 10MG) SC SCH (20:57)
[2023-07-04] VITALS (7 sets, daily range): BP systolic 84–116; BP diastolic 38–75; TEMP 96.5–98.6; O2SAT 98–100
[2023-07-04] MEDS: VANCOMYCIN HCL 1,000 MG, VIAL MATE ADAPTER 1 EACH in D5W 250 ML IV SCH ×2 (01:22→10:37)
[2023-07-04] MEDS ORDERED: LR 1,000 ML IV ONE ×2 (02:00→02:45)
[2023-07-04 07:29] LABS: BASO % 0.5 % (0.0-1.0); EOS # 0.1 10^3/uL (0.0-0.5); EOS % 4.3 % (0.0-3.0); HEMATOCRIT 27.5 % (42.0-52.0); HEMOGLOBIN 8.5 g/dl (13.5-17.5); LYMPH # 0.3 10^3/uL (1.5-5.0); MEAN CORPUSCULAR HEMOGLOBIN 26.6 pg (27.0-33.0); MEAN CORPUSCULAR HGB CONC 30.9 g/dl (32.0-36.5); MEAN CORPUSCULAR VOLUME 85.9 fl (80.0-96.0); MONO # 0.2 10^3/uL (0.0-0.8); MONO % 10.1 % (2.0-8.0); NEUTROPHILS # 1.3 10^3/uL (1.5-8.5); NEUTROPHILS % 66.5 % (36.0-66.0); PLATELET COUNT, AUTOMATED 188 10^3/uL (150-450); WHITE BLOOD COUNT 1.9 10^3/uL (4.0-10.0)
[2023-07-04 07:55] LABS: BLOOD UREA NITROGEN 10 MG/DL (9-23); CALCIUM LEVEL 7.5 MG/DL (8.5-10.1); CARBON DIOXIDE LEVEL 27 MMOL/L (20-31); CHLORIDE LEVEL 106 MMOL/L (98-107); CREATININE FOR GFR 0.62 MG/DL (0.70-1.30); GLOMERULAR FILTRATION RATE > 60.0 (>60); GLUCOSE, FASTING 105 MG/DL (60-100); MAGNESIUM LEVEL 1.6 MG/DL (1.8-2.4); POTASSIUM SERUM 4.4 MMOL/L (3.5-5.1); SODIUM LEVEL 139 MMOL/L (136-145)
[2023-07-04] MEDS ORDERED: DARUNAVIR 800 MG PO SCH (09:00)
[2023-07-04] MEDS ORDERED: GENVOYA PO SCH (09:00)
[2023-07-04] MEDS: BACTRIM 160MG/800MG DS TAB PO SCH (10:37)
[2023-07-04] MEDS: ENOXAPARIN 60MG/0.6ML SYRINGE (J1650 PER 10MG) SC SCH ×2 (10:38→21:02)
[2023-07-04] MEDS: NORCO, ANEXSIA 5/325MG TABLET (HYDROcodone/ACETAMINOPHEN) PO PRN ×2 (11:01→17:24)
[2023-07-04] MEDS: MAG SULF 1GM/100ML (MAG RUN) 1 GM in IV 1 EA IV SCH ×3 (12:37→13:50)
[2023-07-05] MEDS ORDERED: UNRESOLVED PATIENT OWN MED ORDER XX SCH (00:01)
[2023-07-05] MEDS: VANICREAM MOISTURIZING SKIN CREAM 113GM TUBE TOP SCH ×2 (00:33→09:15)
[2023-07-05] MEDS: TRIAMCINOLONE ACET 0.1% CREAM 80GM EXT SCH ×2 (00:34→09:16)
[2023-07-05] MEDS: CEPHALEXIN 500 MG CAP PO SCH ×4 (00:39→17:16)
[2023-07-05] MEDS: NORCO, ANEXSIA 5/325MG TABLET (HYDROcodone/ACETAMINOPHEN) PO PRN ×3 (00:40→13:16)
[2023-07-05] MEDS ORDERED: LORazepam 2 MG/ML 1ML VIAL IV ONE (03:55)
[2023-07-05 06:48] LABS: BASO % 0.6 % (0.0-1.0); EOS # 0.1 10^3/uL (0.0-0.5); EOS % 2.9 % (0.0-3.0); HEMATOCRIT 27.1 % (42.0-52.0); HEMOGLOBIN 8.4 g/dl (13.5-17.5); LYMPH # 0.2 10^3/uL (1.5-5.0); LYMPH % 10.6 % (24.0-44.0); MEAN CORPUSCULAR HEMOGLOBIN 26.5 pg (27.0-33.0); MEAN CORPUSCULAR VOLUME 85.5 fl (80.0-96.0); MONO # 0.1 10^3/uL (0.0-0.8); MONO % 8.2 % (2.0-8.0); NEUTROPHILS # 1.3 10^3/uL (1.5-8.5); NEUTROPHILS % 75.9 % (36.0-66.0); PLATELET COUNT, AUTOMATED 204 10^3/uL (150-450); RED BLOOD COUNT 3.17 10^6/uL (4.30-6.10); WHITE BLOOD COUNT 1.7 10^3/uL (4.0-10.0)
[2023-07-05 07:22] LABS: BLOOD UREA NITROGEN 11 MG/DL (9-23); CALCIUM LEVEL 7.6 MG/DL (8.5-10.1); CARBON DIOXIDE LEVEL 27 MMOL/L (20-31); CHLORIDE LEVEL 105 MMOL/L (98-107); CREATININE FOR GFR 0.64 MG/DL (0.70-1.30); GLOMERULAR FILTRATION RATE > 60.0 (>60); GLUCOSE, FASTING 84 MG/DL (60-100); MAGNESIUM LEVEL 1.8 MG/DL (1.8-2.4); POTASSIUM SERUM 4.8 MMOL/L (3.5-5.1); SODIUM LEVEL 136 MMOL/L (136-145)
[2023-07-05] MEDS: ENOXAPARIN 60MG/0.6ML SYRINGE (J1650 PER 10MG) SC SCH ×2 (09:13→17:16)
[2023-07-05] MEDS: BACTRIM 160MG/800MG DS TAB PO SCH (09:13)
[2023-07-05] MEDS ORDERED: LOVE0.4I2 SC (10:31)
[2023-07-05] MEDS ORDERED: HYDR-3715 PO (10:31)
[2023-07-05] MEDS ORDERED: CEPH500C PO (10:31)
[2023-07-05] MEDS ORDERED: TRIA1CR80 EXT (10:31)
[2023-07-05] MEDS ORDERED: Patient Own Medication PO (10:31)
[2023-07-05] MEDS ORDERED: BACTDSTA PO (10:31)
== END 2023-07-05 17:31 | disposition home or self-care (01) | DRG 894 ==
LOC: PREINTOOBSV 14:17 → M MSPAV 14:21 → OBSVTOIN 07-03 12:09
PROVIDERS: ADMIT Internal Medicine; ATTEND Internal Medicine
PROC: B246ZZZ Ultrasonography of Right and Left Heart (ICD-10-PCS; principal; 2023-07-04)
DX: L03.115 Cellulitis of right lower limb (principal); I82.502 Chronic embolism and thrombosis of unspecified deep veins of left lower extremity; B20 Human immunodeficiency virus [HIV] disease; L97.519 Non-pressure chronic ulcer of other part of right foot with unspecified severity; F41.9 Anxiety disorder, unspecified; F32.A Depression, unspecified; G62.9 Polyneuropathy, unspecified; G47.00 Insomnia, unspecified; E78.5 Hyperlipidemia, unspecified; F17.210 Nicotine dependence, cigarettes, uncomplicated; B97.4 Respiratory syncytial virus as the cause of diseases classified elsewhere; Z79.01 Long term (current) use of anticoagulants; Z88.1 Allergy status to other antibiotic agents; Z20.822 Contact with and (suspected) exposure to COVID-19

== ENCOUNTER → 2023-07-02 | Outpatient (CLI) | payer BC, MEDICARE ==
[~2023-07-02] MED LIST changes: +ACETAMINOPHEN TAB 650MG DOSE (2X325MG) PO ONE; +BACTDSTA PO; +CELE0.09 PO; -CELE1CAP9 PO; +CEPH500C PO; +ELIQ5TAB PO; +HYDR-3715 PO; +LOVE0.4I2 SC; +Patient Own Medication PO; +TRIA1CR80 EXT
[2023-07-02 14:22] LABS: ALBUMIN 2.4 G/DL (3.2-5.2); ALKALINE PHOSPHATASE 55 U/L (46-116); ALT/SGPT 16 U/L (7.0-40); AST/SGOT 17 U/L (<34); BILIRUBIN,TOTAL 0.3 MG/DL (0.3-1.2); BLOOD UREA NITROGEN 7 MG/DL (9-23); CALCIUM LEVEL 7.8 MG/DL (8.5-10.1); CARBON DIOXIDE LEVEL 28 MMOL/L (20-31); CHLORIDE LEVEL 100 MMOL/L (98-107); CREATININE FOR GFR 0.63 MG/DL (0.70-1.30); GLOMERULAR FILTRATION RATE > 60.0 (>60); GLUCOSE, FASTING 89 MG/DL (60-100); SODIUM LEVEL 131 MMOL/L (136-145); TOTAL PROTEIN 6.7 G/DL (5.7-8.2)
[2023-07-02 15:03] LABS: HEPATITIS C VIRUS ABY INDEX 0.41 INDEX (<0.8)
[2023-07-04 05:07] LABS: % CD8 Pos Lymph 29.1 % (12.0-35.5); ABS Lymphs 0.3 x10E3/uL (0.7-3.1); ABS Monocytes 0.3 x10E3/uL (0.1-0.9); ABS Neutophils 3.5 x10E3/uL (1.4-7.0); Abs CD4 Helper 6 /uL (359-1519); Abs CD8 Suppres 87 /uL (109-897); CD4/CD8 Ratio 0.07 (0.92-3.72); Eosinophils 1 % (Not Estab.); HGB 9.3 g/dL (13.0-17.7); HIV-1 RNA PCR QUANT 2 LC550285 1530000 copies/mL (.); HIV-1 RNA PCR QUANT 3 LC550285 6.185 (.); Imm ABS Grans 0.1 x10E3/uL (0.0-0.1); Immature Grans 1 % (Not Estab.); Lymphocytes 6 % (Not Estab.); MCH 26.5 pg (26.6-33.0); MCHC 32.1 g/dL (31.5-35.7); MCV 83 fL (79-97); Monocytes 8 % (Not Estab.); Neutrophils 84 % (Not Estab.); Platelets 254 x10E3/uL (150-450); RBC 3.51 x10E6/uL (4.14-5.80); RDW 13.7 % (11.6-15.4); WBC 4.1 x10E3/uL (3.4-10.8)
== END ==
LOC: M PLALAB 10:35
PROVIDERS: ATTEND Internal Medicine Infectious Disease
DX: B20 Human immunodeficiency virus [HIV] disease (principal); L02.612 Cutaneous abscess of left foot

== ENCOUNTER → 2023-08-13 | Outpatient (CLI) | payer BC ==
[~2023-08-13] MED LIST changes: +BACTDSTA PO; +CEPH500C PO; +HYDR-3715 PO; +LOVE0.4I2 SC; +Patient Own Medication PO; +TRIA1CR80 EXT
[2023-08-13 14:23] LABS: ALBUMIN 2.6 G/DL (3.2-5.2); ALKALINE PHOSPHATASE 69 U/L (46-116); ALT/SGPT 16 U/L (7.0-40); AST/SGOT 22 U/L (<34); BILIRUBIN,TOTAL 0.2 MG/DL (0.3-1.2); BLOOD UREA NITROGEN 14 MG/DL (9-23); CALCIUM LEVEL 8.2 MG/DL (8.5-10.1); CARBON DIOXIDE LEVEL 27 MMOL/L (20-31); CHLORIDE LEVEL 104 MMOL/L (98-107); CREATININE FOR GFR 0.58 MG/DL (0.70-1.30); GLOMERULAR FILTRATION RATE > 60.0 (>60); GLUCOSE, FASTING 83 MG/DL (60-100); POTASSIUM SERUM 4.7 MMOL/L (3.5-5.1); SODIUM LEVEL 137 MMOL/L (136-145); TOTAL PROTEIN 7.5 G/DL (5.7-8.2)
[2023-08-14 17:08] LABS: % CD8 Pos Lymph 37.6 % (12.0-35.5); %CD4 Pos Lymphs 3.6 % (30.8-58.5); ABS Lymphs 0.3 x10E3/uL (0.7-3.1); ABS Monocytes 0.5 x10E3/uL (0.1-0.9); ABS Neutophils 2.6 x10E3/uL (1.4-7.0); Abs CD4 Helper 11 /uL (359-1519); Abs CD8 Suppres 113 /uL (109-897); Eosinophils 1 % (Not Estab.); HCT 28.3 % (37.5-51.0); HGB 9.1 g/dL (13.0-17.7); HIV-1 RNA PCR QUANT 2 LC550285 1770000 copies/mL (.); HIV-1 RNA PCR QUANT 3 LC550285 6.248 (.); Immature Grans 0 % (Not Estab.); Lymphocytes 9 % (Not Estab.); MCH 26.7 pg (26.6-33.0); MCHC 32.2 g/dL (31.5-35.7); MCV 83 fL (79-97); Monocytes 15 % (Not Estab.); Neutrophils 75 % (Not Estab.); Platelets 226 x10E3/uL (150-450); RBC 3.41 x10E6/uL (4.14-5.80); RDW 15.9 % (11.6-15.4); WBC 3.5 x10E3/uL (3.4-10.8)
== END ==
LOC: M PLALAB 11:32
PROVIDERS: ATTEND Internal Medicine Infectious Disease
DX: B20 Human immunodeficiency virus [HIV] disease (principal)

== ENCOUNTER → 2023-08-19 | Outpatient (CLI) | payer SELFPAY | LOC: M PLALAB 13:37 | PROVIDERS: ATTEND Internal Medicine Infectious Disease | DX: B20 Human immunodeficiency virus [HIV] disease (principal) ==

== ENCOUNTER → 2023-09-17 | Outpatient (CLI) | payer BC, SELFPAY ==
[2023-09-17 18:07] LABS: ALBUMIN 2.4 G/DL (3.2-5.2); ALKALINE PHOSPHATASE 62 U/L (46-116); ALT/SGPT 10 U/L (7.0-40); AST/SGOT 16 U/L (<34); BILIRUBIN,TOTAL 0.2 MG/DL (0.3-1.2); BLOOD UREA NITROGEN 12 MG/DL (9-23); CALCIUM LEVEL 7.8 MG/DL (8.5-10.1); CARBON DIOXIDE LEVEL 25 MMOL/L (20-31); CHLORIDE LEVEL 106 MMOL/L (98-107); CREATININE FOR GFR 0.66 MG/DL (0.70-1.30); GLOMERULAR FILTRATION RATE > 60.0 (>60); GLUCOSE, FASTING 91 MG/DL (60-100); POTASSIUM SERUM 4.3 MMOL/L (3.5-5.1); SODIUM LEVEL 136 MMOL/L (136-145); TOTAL PROTEIN 7.1 G/DL (5.7-8.2)
== END ==
LOC: M PLALAB 12:16
PROVIDERS: ATTEND Internal Medicine Infectious Disease
DX: R59.0 Localized enlarged lymph nodes (principal); B20 Human immunodeficiency virus [HIV] disease

== ENCOUNTER 2023-10-04 06:09 | Day surgery (SDC) | payer MEDICAID, SELFPAY ==
[~2023-10-04] VITALS: Ht 170.2 cm; Wt 87.1 kg
[~2023-10-04 06:09] MED LIST changes: +PRAD150C6 PO; +PREZ600T3 PO; +blood thinner PO
[2023-10-04] MEDS ORDERED: LR 1,000 ML IV SCH (06:25)
[2023-10-04] MEDS: ceFAZolin SOD 2 GM in IV 1 EA IV ONE (07:41)
[2023-10-04] MEDS ORDERED: MIDAZOLAM INJ 2MG/2ML VIAL As Ordered ONE (07:44)
[2023-10-04] MEDS ORDERED: ONDANSETRON 4MG 2ML VIAL As Ordered ONE (07:44)
[2023-10-04] MEDS ORDERED: propofoL 200 MG/20 ML VIAL As Ordered ONE (07:44)
[2023-10-04] MEDS ORDERED: fentaNYL 250 MCG/5 ML INJECTION As Ordered ONE (07:44)
[2023-10-04] MEDS ORDERED: dexmedeTOMIDine (4MCG/ML)200MCG/50ML BTL (PRECEDEX) As Ordered ONE (07:44)
[2023-10-04] MEDS ORDERED: LIDOCAINE 2% 100MG/5ML SDV (FOR ANES.) As Ordered ONE (07:44)
[2023-10-04] MEDS ORDERED: ACETAMINOPHEN 1000MG 100ML IV BAG As Ordered ONE (07:51)
[2023-10-04] MEDS ORDERED: fentaNYL 100 MCG/2 ML INJECTION IV PRN (09:00)
[2023-10-04] MEDS ORDERED: oxyCODONE 5MG TAB PO PRN (09:00)
[2023-10-04] MEDS ORDERED: ONDANSETRON 4MG 2ML VIAL IV PRN (09:00)
[2023-10-04 09:41] VITALS: BP 123/66; TEMP 97.8; O2SAT 94
== END 2023-10-04 09:59 | disposition home or self-care (01) ==
LOC: M SDC 06:09
PROVIDERS: ATTEND Surgery
DX: I89.8 Other specified noninfective disorders of lymphatic vessels and lymph nodes (principal); Z21 Asymptomatic human immunodeficiency virus [HIV] infection status; Z86.718 Personal history of other venous thrombosis and embolism; Z79.899 Other long term (current) drug therapy; Z79.01 Long term (current) use of anticoagulants; Z87.891 Personal history of nicotine dependence
CPT/HCPCS: 38531; 87075; 87116; 87186; 87206; 88307; J0131; J0665; J0690; J1100; J2250; J2405; J3010

== ENCOUNTER → 2023-10-10 | Outpatient (CLI) | payer OTHER | LOC: M PLALAB 12:02 | PROVIDERS: ATTEND Internal Medicine Infectious Disease | DX: B20 Human immunodeficiency virus [HIV] disease (principal) ==

== ENCOUNTER → 2023-10-11 | Outpatient (REF) | payer OTHER | LOC: M LAB REF 12:09 | PROVIDERS: ATTEND Internal Medicine Infectious Disease | DX: L02.411 Cutaneous abscess of right axilla (principal); R59.0 Localized enlarged lymph nodes ==

== ENCOUNTER → 2023-11-11 | Outpatient (CLI) | payer OTHER ==
[2023-11-11 14:05] LABS: ALBUMIN 3.3 G/DL (3.2-5.2); ALKALINE PHOSPHATASE 115 U/L (46-116); ALT/SGPT 18 U/L (7.0-40); AST/SGOT 16 U/L (<34); BILIRUBIN,TOTAL 0.2 MG/DL (0.3-1.2); BLOOD UREA NITROGEN 12 MG/DL (9-23); CALCIUM LEVEL 9.6 MG/DL (8.5-10.1); CARBON DIOXIDE LEVEL 29 MMOL/L (20-31); CHLORIDE LEVEL 104 MMOL/L (98-107); CREATININE FOR GFR 0.79 MG/DL (0.70-1.30); GLOMERULAR FILTRATION RATE > 60.0 (>60); GLUCOSE, FASTING 129 MG/DL (60-100); POTASSIUM SERUM 4.7 MMOL/L (3.5-5.1); SODIUM LEVEL 137 MMOL/L (136-145); TOTAL PROTEIN 8.2 G/DL (5.7-8.2)
[2023-11-12 19:10] LABS: % CD8 Pos Lymph 51.8 % (12.0-35.5); %CD4 Pos Lymphs 8.2 % (30.8-58.5); ABS Lymphs 0.8 x10E3/uL (0.7-3.1); ABS Monocytes 0.4 x10E3/uL (0.1-0.9); Abs CD4 Helper 66 /uL (359-1519); Abs CD8 Suppres 414 /uL (109-897); CD4/CD8 Ratio 0.16 (0.92-3.72); Eosinophils 0 % (Not Estab.); HCT 37.4 % (37.5-51.0); HGB 11.5 g/dL (13.0-17.7); HIV-1 RNA PCR QUANT 2 LC550285 6690 copies/mL (.); HIV-1 RNA PCR QUANT 3 LC550285 3.825 (.); Immature Grans 1 % (Not Estab.); Lymphocytes 12 % (Not Estab.); MCHC 30.7 g/dL (31.5-35.7); MCV 85 fL (79-97); Monocytes 6 % (Not Estab.); Neutrophils 81 % (Not Estab.); Platelets 348 x10E3/uL (150-450); RBC 4.42 x10E6/uL (4.14-5.80); RDW 14.9 % (11.6-15.4); WBC 6.3 x10E3/uL (3.4-10.8)
== END ==
LOC: M PLALAB 10:16
PROVIDERS: ATTEND Internal Medicine Infectious Disease
DX: B20 Human immunodeficiency virus [HIV] disease (principal)

== ENCOUNTER → 2024-02-10 | Outpatient (CLI) | payer MEDICAID, OTHER ==
[~2024-02-10] MED LIST changes: +DIPH1TAB80 PO; -DIPH2.5T14 PO
[2024-02-10 14:17] LABS: ALBUMIN 3.6 G/DL (3.2-5.2); ALKALINE PHOSPHATASE 120 U/L (46-116); ALT/SGPT 22 U/L (7.0-40); AST/SGOT 27 U/L (<34); BILIRUBIN,TOTAL < 0.2 MG/DL (0.3-1.2); BLOOD UREA NITROGEN 11 MG/DL (9-23); CALCIUM LEVEL 9.6 MG/DL (8.5-10.1); CARBON DIOXIDE LEVEL 26 MMOL/L (20-31); CHLORIDE LEVEL 105 MMOL/L (98-107); CREATININE FOR GFR 0.82 MG/DL (0.70-1.30); GLOMERULAR FILTRATION RATE > 60.0 (>60); GLUCOSE, FASTING 91 MG/DL (60-100); SODIUM LEVEL 137 MMOL/L (136-145); TOTAL PROTEIN 7.3 G/DL (5.7-8.2)
[2024-02-12 03:07] LABS: % CD8 Pos Lymph 42.4 % (12.0-35.5); %CD4 Pos Lymphs 8.7 % (30.8-58.5); ABS Eosinophils 0.1 x10E3/uL (0.0-0.4); ABS Lymphs 1.1 x10E3/uL (0.7-3.1); ABS Monocytes 0.4 x10E3/uL (0.1-0.9); ABS Neutophils 2.7 x10E3/uL (1.4-7.0); Abs CD4 Helper 96 /uL (359-1519); Abs CD8 Suppres 466 /uL (109-897); CD4/CD8 Ratio 0.21 (0.92-3.72); Eosinophils 2 % (Not Estab.); HCT 46.3 % (37.5-51.0); HGB 14.8 g/dL (13.0-17.7); HIV-1 RNA PCR QUANT 2 LC550285 3690 copies/mL (.); HIV-1 RNA PCR QUANT 3 LC550285 3.567 (.); Immature Grans 1 % (Not Estab.); Lymphocytes 25 % (Not Estab.); MCH 26.9 pg (26.6-33.0); MCV 84 fL (79-97); Monocytes 9 % (Not Estab.); Neutrophils 62 % (Not Estab.); Platelets 302 x10E3/uL (150-450); RDW 14.6 % (11.6-15.4); RPR Non Reactive (Non Reactive); WBC 4.3 x10E3/uL (3.4-10.8)
== END ==
LOC: M PLALAB 09:20
PROVIDERS: ATTEND Internal Medicine Infectious Disease
DX: B20 Human immunodeficiency virus [HIV] disease (principal); A31.0 Pulmonary mycobacterial infection

== ENCOUNTER → 2024-02-12 | Outpatient (REF) | payer OTHER, MEDICAID ==
[2024-02-12 13:46] LABS: HEMOGLOBIN A1c 5.2 % (4.0-6.0)
[2024-02-12 13:57] LABS: CHOLESTEROL RISK RATIO 3.37 (<5); HDL CHOLESTEROL 42.1 MG/DL (>40); LDL CHOLESTEROL 75.5 MG/DL (<100); NON-HDL-C 99.9 MG/DL
[2024-02-12 14:01] LABS: FOLATE 13.7 NG/ML (>5.4)
[2024-02-12 14:02] LABS: THYROID STIMULATING HORMONE 1.042 uIU/ML (0.55-4.78)
[2024-02-12 14:04] LABS: FREE T4 0.82 NG/DL (0.89-1.76)
== END ==
LOC: M SFHCADAM 09:18
PROVIDERS: ATTEND Physician Assistant
DX: I82.502 Chronic embolism and thrombosis of unspecified deep veins of left lower extremity (principal); Z12.11 Encounter for screening for malignant neoplasm of colon; R91.8 Other nonspecific abnormal finding of lung field; G62.9 Polyneuropathy, unspecified; Z13.1 Encounter for screening for diabetes mellitus; Z13.220 Encounter for screening for lipoid disorders

== ENCOUNTER → 2024-04-02 | Outpatient (REF) | payer OTHER, MEDICAID | LOC: M SFHCADAM 10:37 | PROVIDERS: ATTEND Physician Assistant | DX: E03.9 Hypothyroidism, unspecified (principal); D68.59 Other primary thrombophilia; D68.51 Activated protein C resistance ==

== ENCOUNTER → 2024-04-07 | Outpatient (CLI) | payer OTHER ==
[2024-04-07 13:07] LABS: FREE T4 0.7 NG/DL (0.89-1.76)
[2024-04-07 13:08] LABS: THYROID STIMULATING HORMONE 1.289 uIU/ML (0.55-4.78)
== END ==
LOC: M LAB 11:31
PROVIDERS: ATTEND Physician Assistant
DX: E03.9 Hypothyroidism, unspecified (principal); D68.59 Other primary thrombophilia; D68.51 Activated protein C resistance

== ENCOUNTER → 2024-05-05 | Outpatient (CLI) | payer OTHER ==
[2024-05-05 16:20] LABS: ALBUMIN 3.7 G/DL (3.2-5.2); ALKALINE PHOSPHATASE 117 U/L (46-116); ALT/SGPT 16 U/L (7.0-40); AST/SGOT 12 U/L (<34); BILIRUBIN,TOTAL 0.2 MG/DL (0.3-1.2); BLOOD UREA NITROGEN 21 MG/DL (9-23); CALCIUM LEVEL 8.9 MG/DL (8.5-10.1); CARBON DIOXIDE LEVEL 26 MMOL/L (20-31); CHLORIDE LEVEL 106 MMOL/L (98-107); CREATININE FOR GFR 0.86 MG/DL (0.70-1.30); FREE T4 0.81 NG/DL (0.89-1.76); GLOMERULAR FILTRATION RATE > 60.0 (>60); GLUCOSE, FASTING 146 MG/DL (60-100); POTASSIUM SERUM 4.6 MMOL/L (3.5-5.1); SODIUM LEVEL 137 MMOL/L (136-145); TOTAL PROTEIN 6.6 G/DL (5.7-8.2)
== END ==
LOC: M PLALAB 12:09
PROVIDERS: ATTEND Internal Medicine Infectious Disease
DX: B20 Human immunodeficiency virus [HIV] disease (principal); E03.9 Hypothyroidism, unspecified; A31.0 Pulmonary mycobacterial infection

== ENCOUNTER → 2024-08-25 | Outpatient (REF) | payer MEDICAID, OTHER ==
[~2024-08-25] MED LIST changes: +AZIT500T5 PO; +BUPR150T12 PO; +DESC1TAB PO; +DICL20GE TP; +ETHA1TAB2 PO; +GABA-284 PO; +LIDO15SO9 TOP; +PANT20TA6 PO; +PRED5PAK2 PO; +RIFA1CAP9 PO; +SYNT25TA PO; +TIVI1TAB PO; +[UNRECOGNIZED DRUG - CODE] PO
== END ==
LOC: M SFHCADAM 15:34
PROVIDERS: ATTEND Physician Assistant
DX: I82.502 Chronic embolism and thrombosis of unspecified deep veins of left lower extremity (principal); A51.49 Other secondary syphilitic conditions; M19.90 Unspecified osteoarthritis, unspecified site; G62.9 Polyneuropathy, unspecified; L40.9 Psoriasis, unspecified

== ENCOUNTER → 2024-08-27 | Outpatient (CLI) | payer OTHER ==
[2024-08-28 13:07] LABS: % CD4+ LYMPHS 12.3 % (30.8-58.5); ABSOLUTE CD4 HELPER 271 /uL (359-1519); BASOPHILS 1 % (Not Estab.); EOSINOPHILS 4 % (Not Estab.); EOSINOPHILS ABSOLUTE 0.2 x10E3/uL (0.0-0.4); HCT 44.4 % (37.5-51.0); LYMPHOCYTES 34 % (Not Estab.); LYMPHOCYTES ABSOLUTE 2.2 x10E3/uL (0.7-3.1); MCH 27.3 pg (26.6-33.0); MCHC 31.5 g/dL (31.5-35.7); MCV 87 fL (79-97); MONOCYTES 10 % (Not Estab.); MONOCYTES ABSOLUTE 0.7 x10E3/uL (0.1-0.9); NEUTROPHILS 51 % (Not Estab.); NEUTROPHILS ABSOLUTE 3.2 x10E3/uL (1.4-7.0); PLT 259 x10E3/uL (150-450); RBC 5.13 x10E6/uL (4.14-5.80); RDW 14.4 % (11.6-15.4); WBC 6.3 x10E3/uL (3.4-10.8)
[2024-08-29 03:03] LABS: CYCLIC CITRULLINATED PEPTIDE < 16 UNITS (<20)
[2024-08-31 13:26] LABS: HIV-1 RNA PCR QUANT 2 85 copies/mL (NOT DETECTED); HIV-1 RNA PCR QUANT 3 1.93 (NOT DETECTED)
== END ==
LOC: M PLALAB 10:19
PROVIDERS: ATTEND Internal Medicine Infectious Disease
DX: G62.9 Polyneuropathy, unspecified (principal); B20 Human immunodeficiency virus [HIV] disease

== ENCOUNTER → 2024-08-27 | Outpatient (CLI) | payer OTHER ==
[2024-08-27 14:10] LABS: BASO % 0.3 % (0.0-1.0); EOS # 0.3 10^3/uL (0.0-0.5); EOS % 3.9 % (0.0-3.0); HEMATOCRIT 43.5 % (42.0-52.0); HEMOGLOBIN 13.9 g/dl (13.5-17.5); LYMPH # 2.2 10^3/uL (1.5-5.0); LYMPH % 33.9 % (24.0-44.0); MEAN CORPUSCULAR HEMOGLOBIN 28.3 pg (27.0-33.0); MEAN CORPUSCULAR VOLUME 88.6 fl (80.0-96.0); MONO # 0.7 10^3/uL (0.0-0.8); MONO % 10.2 % (2.0-8.0); NEUTROPHILS # 3.3 10^3/uL (1.5-8.5); NEUTROPHILS % 51.5 % (36.0-66.0); PLATELET COUNT, AUTOMATED 244 10^3/uL (150-450); RED BLOOD COUNT 4.91 10^6/uL (4.30-6.10); WHITE BLOOD COUNT 6.4 10^3/uL (4.0-10.0)
[2024-08-27 14:35] LABS: URIC ACID 5.7 MG/DL (3.7-9.2)
[2024-08-27 14:39] LABS: ALBUMIN 3.8 G/DL (3.2-5.2); ALKALINE PHOSPHATASE 114 U/L (40-129); ALT/SGPT 17 U/L (7.0-40); AST/SGOT 17 U/L (<34); BILIRUBIN,TOTAL 0.6 MG/DL (0.3-1.2); BLOOD UREA NITROGEN 15 MG/DL (9-23); CALCIUM LEVEL 9.3 MG/DL (8.5-10.1); CARBON DIOXIDE LEVEL 24 MMOL/L (20-31); CHLORIDE LEVEL 109 MMOL/L (98-107); CREATININE FOR GFR 0.78 MG/DL (0.70-1.30); GLOMERULAR FILTRATION RATE > 60.0 (>60); GLUCOSE, FASTING 80 MG/DL (60-100); MAGNESIUM LEVEL 2.2 MG/DL (1.8-2.4); POTASSIUM SERUM 4.6 MMOL/L (3.5-5.1); RHEUMATOID FACTOR QUANT 6.7 IU/ML (<14); SODIUM LEVEL 136 MMOL/L (136-145); TOTAL PROTEIN 7.7 G/DL (5.7-8.2)
[2024-08-27 14:40] LABS: FOLATE 15.7 NG/ML (>5.4); FREE T4 0.96 NG/DL (0.89-1.76); VITAMIN B12 LEVEL 409 PG/ML (211-911)
[2024-08-27 14:41] LABS: THYROID STIMULATING HORMONE 0.951 uIU/ML (0.55-4.78)
[2024-08-31 10:18] LABS: ANA SCREEN, IFA NEGATIVE (NEGATIVE)
== END ==
LOC: M PLALAB 10:22
PROVIDERS: ATTEND Physician Assistant
DX: G62.9 Polyneuropathy, unspecified (principal); A51.49 Other secondary syphilitic conditions; I82.502 Chronic embolism and thrombosis of unspecified deep veins of left lower extremity; M19.90 Unspecified osteoarthritis, unspecified site; L40.9 Psoriasis, unspecified

== ENCOUNTER → 2025-01-25 | Outpatient (CLI) | payer OTHER ==
[2025-01-25 16:04] LABS: ALBUMIN 4.1 G/DL (3.2-5.2); ALKALINE PHOSPHATASE 95 U/L (40-129); ALT/SGPT 24 U/L (7.0-40); AST/SGOT 27 U/L (<34); BILIRUBIN,TOTAL 0.4 MG/DL (0.3-1.2); BLOOD UREA NITROGEN 17 MG/DL (9-23); CARBON DIOXIDE LEVEL 26 MMOL/L (20-31); CHLORIDE LEVEL 106 MMOL/L (98-107); CHOLESTEROL LEVEL 180 MG/DL (<200); CHOLESTEROL RISK RATIO 4.14 (<5); CREATININE FOR GFR 0.87 MG/DL (0.70-1.30); GLOMERULAR FILTRATION RATE > 60.0 (>60); GLUCOSE, FASTING 94 MG/DL (60-100); HDL CHOLESTEROL 43.4 MG/DL (>40); LDL CHOLESTEROL 108.4 MG/DL (<100); NON-HDL-C 136.6 MG/DL; POTASSIUM SERUM 4.3 MMOL/L (3.5-5.1); SODIUM LEVEL 141 MMOL/L (136-145); TOTAL PROTEIN 7.3 G/DL (5.7-8.2); TRIGLYCERIDES LEVEL 141 MG/DL (<150)
[2025-01-25 16:07] LABS: THYROID STIMULATING HORMONE 2.315 uIU/ML (0.55-4.78)
== END ==
LOC: M PLALAB 13:31
PROVIDERS: ATTEND Internal Medicine Infectious Disease
DX: E03.9 Hypothyroidism, unspecified (principal); B20 Human immunodeficiency virus [HIV] disease; A51.49 Other secondary syphilitic conditions; Z13.220 Encounter for screening for lipoid disorders

== ENCOUNTER → 2025-05-24 | Outpatient (CLI) | payer OTHER ==
[~2025-05-24] MED LIST changes: +BUPR-766 PO; +TRAZ-252 PO
[2025-05-24 16:34] LABS: ALT/SGPT 39 U/L (7.0-40); AST/SGOT 31 U/L (<34); CALCIUM LEVEL 9.4 MG/DL (8.5-10.1); CARBON DIOXIDE LEVEL 27 MMOL/L (20-31); CHLORIDE LEVEL 103 MMOL/L (98-107); CREATININE FOR GFR 0.83 MG/DL (0.70-1.30); GLOMERULAR FILTRATION RATE > 90.0 (>60); POTASSIUM SERUM 4.0 MMOL/L (3.5-5.1); SODIUM LEVEL 141 MMOL/L (136-145)
[2025-05-26 10:21] LABS: HIV-1 RNA PCR QUANT 2 220 copies/mL (NOT DETECTED); HIV-1 RNA PCR QUANT 3 2.34 (NOT DETECTED)
[2025-05-26 14:38] LABS: RPR REACTIVE (NON-REACTIVE)
[2025-05-26 16:07] LABS: % CD4 19 % (30-61); %CD8 41 % (12-42); ABSOLUTE CD4 CELLS 270 cells/uL (490-1740); ABSOLUTE CD8 CELLS 598 cells/uL (180-1170); ABSOLUTE LYMPHOCYTES 1453 cells/uL (850-3900); CD4 CD8 RATIO 0.45 (0.86-5.00)
[2025-05-27 13:33] LABS: TREPONEMA PALLIDUM ANTIBODIES POSITIVE (NEGATIVE)
[2025-05-27 13:47] LABS: RPR TITER 1:256 (<1:1)
== END ==
LOC: M PLAIMG 12:28
PROVIDERS: ATTEND Internal Medicine Infectious Disease
DX: B20 Human immunodeficiency virus [HIV] disease (principal); L40.9 Psoriasis, unspecified

== ENCOUNTER 2025-05-28 08:54 | Day surgery (SDC) | payer OTHER ==
[~2025-05-28] VITALS: Ht 170.2 cm; Wt 90.9 kg
[2025-05-28 11:20] VITALS: BP 97/54; O2SAT 97
[2025-06-01] MEDS ORDERED: SFHHYD1CR TOP (11:35)
[2025-06-01] MEDS ORDERED: BIKT1TAB PO (12:18)
[2025-06-01] MEDS ORDERED: CLOT15CR4 TOP (12:18)
== END 2025-05-28 11:25 | disposition home or self-care (01) ==
LOC: M OPP 08:54
PROVIDERS: ATTEND Internal Medicine Gastroenterology
DX: Z12.11 Encounter for screening for malignant neoplasm of colon (principal); K57.30 Diverticulosis of large intestine without perforation or abscess without bleeding; K64.8 Other hemorrhoids; K22.89 Other specified disease of esophagus; R12 Heartburn; K21.00 Gastro-esophageal reflux disease with esophagitis, without bleeding; B20 Human immunodeficiency virus [HIV] disease; Z88.1 Allergy status to other antibiotic agents; Z79.899 Other long term (current) drug therapy; F17.210 Nicotine dependence, cigarettes, uncomplicated

== ENCOUNTER → 2025-06-03 | Outpatient (CLI) | payer OTHER ==
[~2025-06-03] MED LIST changes: +BIKT1TAB PO; +CLOT15CR4 TOP; +LIDOCAINE 1% MDV 20 ML VIAL SC STA; +SFHHYD1CR TOP
[2025-06-03 08:00] VITALS: TEMP 98.1
[2025-06-03 10:41] LABS: CSF TUBE# TP TUBE 1; TOTAL PROTEIN,CSF 56.2 MG/DL (15-45)
[2025-06-03 10:44] LABS: CSF TUBE# GLU TUBE 1; GLUCOSE CSF 56.0 MG/DL (40-70)
[2025-06-03 10:59] VITALS: BP 113/74; O2SAT 99
[2025-06-04 15:04] LABS: APPEARANCE, CSF CLEAR (CLEAR); COLOR, CSF COLORLESS (COLORLESS); CSF TUBE# CELL CNT TUBE 2
== END ==
LOC: M IRPRO 07:28
PROVIDERS: ATTEND Internal Medicine Infectious Disease
DX: A51.49 Other secondary syphilitic conditions (principal)